=== PATIENT | male | born 1990 | race Caucasian/White ===

== ENCOUNTER → 2023-01-13 09:34 | Outpatient (BNVA) | payer OTHER, SELFPAY | PROVIDERS: PCP Family Medicine; Visit Provider Physician Assistant | DX: Z13.89 Encounter for screening for other disorder (principal) ==

== ENCOUNTER → 2023-01-18 08:01 | Outpatient (BNVA) | payer OTHER, SELFPAY | PROVIDERS: PCP Family Medicine; Visit Provider Surgery | DX: Z13.89 Encounter for screening for other disorder (principal) ==

== ENCOUNTER 2023-01-31 06:45 | Outpatient (REF) | payer OTHER, SELFPAY ==
--- NOTE | 2023-01-31 | ECG_ITS ---
Test Reason : E66.01 Blood Pressure : / mmHG Vent. Rate : 073 BPM Atrial Rate : 073 BPM P-R Int : 118 ms QRS Dur : 104 ms QT Int : 380 ms P-R-T Axes : 007 039 018 degrees QTc Int : 418 ms Normal sinus rhythm Normal ECG No previous ECGs available Referred By: Tariq Brunner Electronically Signed By:JUAN J SCANLON
--- NOTE | ~2023-01-31 | XR_ITS ---
EXAMINATION: XR CHEST CLINICAL INFORMATION: Bariatric service evaluation. E 66.01 COMPARISON: None available. TECHNIQUE: 2 views of the chest were obtained. FINDINGS: The lungs are clear. No hyperinflation. No infiltrate or effusion. The heart is normal in size. The vascularity is normal. The hilar and mediastinal contours and visualized bony structures are unremarkable. XR/XR chest 2V IMPRESSION: Unremarkable examination.
[2023-01-31 07:07] LABS: MANUAL DIFF FLAG NO
[2023-01-31 08:05] LABS: Basophils Percent Auto 0.8 % (0-2); Eosinophils Absolute Auto 0.2 X10*3/uL (0.0-0.4); Eosinophils Percent Auto 4.2 % (0-4); Hematocrit 43.6 % (42.0-52.0); Imm Gran Abs Auto 0.01 X10*3/uL (0.00-0.03); Imm Gran Pct Auto 0.2 % (0.0-0.4); Lymphocytes Absolute Auto 1.8 X10*3/uL (1.2-4.9); Lymphocytes Percent Auto 37.7 % (20-40); Mean Corpuscular HGB Conc 34.4 g/dl (31.0-36.0); Mean Corpuscular Hemoglobin 31.4 pg (27.0-33.0); Mean Corpuscular Volume 91.2 fL (80.0-98.0); Mean Platelet Volume 10.1 fL (9.4-12.4); Monocytes Absolute Auto 0.5 X10*3/uL (0.1-1.2); Monocytes Percent Auto 10.7 % (2-11); Neutrophils Absolute Auto 2.2 x10*3/uL (2.0-8.3); Neutrophils Percent Auto 46.4 % (45-73); Platelet Count 232 X10*3/uL (160-400); Red Blood Count 4.78 X10*6/uL (4.60-5.80); White Blood Count 4.8 X10*3/uL (4.8-10.8)
[2023-01-31 08:39] LABS: Estimated Average Glucose 97 mg/dL
[2023-01-31 09:52] LABS: Alanine Aminotransferase 65 U/L (0-40); Albumin Level 4.7 g/dL (3.5-5.0); Alkaline Phosphatase 60 U/L (39-117); Anion Gap 16 (12-20); Aspartate Amino Transferase 36 U/L (5-37); Bilirubin Total 1.5 mg/dL (0.0-1.0); Blood Urea Nitrogen 16 mg/dL (9-16); C Reactive Protein 1.22 mg/dL (< or = 0.50); Calcium 9.5 mg/dL (8.4-10.2); Carbon Dioxide 26 mmol/L (22-29); Chloride 103 mmol/L (96-108); Cholesterol 169 mg/dL; Estimated Glomerular Filt Rate > 60; Glucose Random 83 mg/dL (60-115); HDL Cholesterol 35 mg/dL; Iron 96 mcg/dL (45-160); LDL Cholesterol Calculated 118 mg/dl; Percent Iron Saturation 37 % (15-50); Potassium 4.1 mmol/L (3.3-5.1); Sodium 141 mmol/L (135-145); Total Iron Binding Capacity 260 mcg/dL (228-428); Total Protein 6.9 g/dL (6.5-8.0); Triglycerides 82 mg/dL; Unsaturated Iron Binding 164 ug/dL
[2023-01-31 10:06] LABS: Ferritin 442 ng/mL (20-250); Folate 10.9 ng/mL (> or = 4.0); Insulin 9 uU/mL (2-29); Vitamin B12 804 pg/mL (200-900); Vitamin D 25-OH Total 10.7 ng/mL (>30)
[2023-02-02 11:19] LABS: Calcium (PTHI) 9.6 mg/dL (8.6-10.3); PTHI 43 pg/mL (16-77)
[2023-02-02 15:01] LABS: H Pylori Breath Test Negative (Negative)
[2023-02-04 01:58] LABS: Zinc 98 mcg/dL (60-130)
[2023-02-06 05:34] LABS: Vitamin B1 9 nmol/L (8-30)
[2023-02-07 16:15] LABS: Vitamin A 43 mcg/dL (38-98)
== END 2023-01-31 06:46 | disposition home or self-care (01) ==
LOC: HO.LAB 06:45
PROVIDERS: PCP Family Medicine; Visit Provider Surgery
DX: E66.01 Morbid (severe) obesity due to excess calories (principal)
CPT/HCPCS: 36415; 71046; 80053; 80061; 82306; 82607; 82728; 82746; 83013; 83036; 83525; 83540; 83970; 84425; 84443; 84590; 84630; 85025; 86140; 93005

== ENCOUNTER → 2023-02-08 07:56 | Outpatient (BNVA) | payer OTHER, SELFPAY | PROVIDERS: PCP Family Medicine; Visit Provider Surgery | DX: Z13.89 Encounter for screening for other disorder (principal) ==

== ENCOUNTER → 2023-02-21 14:30 | Outpatient (BNVA) | payer OTHER, SELFPAY | PROVIDERS: PCP Family Medicine; Visit Provider Counselor Mental Health | DX: Z13.89 Encounter for screening for other disorder (principal) ==

== ENCOUNTER → 2023-03-06 08:14 | Outpatient (BNVA) | payer OTHER, SELFPAY | PROVIDERS: PCP Family Medicine; Visit Provider Surgery | DX: Z13.89 Encounter for screening for other disorder (principal) ==

== ENCOUNTER 2023-03-08 08:12 | Outpatient (REF) | payer OTHER, SELFPAY ==
--- NOTE | ~2023-03-08 | US_ITS ---
EXAMINATION: US COMPLETE ABDOMEN WITH LIVER ELASTOGRAPHY CLINICAL INFORMATION: Obesity COMPARISON: None available. TECHNIQUE: Real-time imaging of the abdominal viscera. Noninvasive ultrasound liver fibrosis assessment is performed using Naresh ElastPQ point quantification shear wave elastography (2D-SWE) with a C5-2 MHz transducer. Multiple elastography samples are obtained. FINDINGS: PANCREAS: Normal. ABDOMINAL AORTA: The proximal, middle, and distal aortic segments are normal in caliber. INFERIOR VENA CAVA: Visualized portions are normal. LIVER: Liver echotexture is increased probably representing fatty infiltration. The liver is upper normal in size. The liver is normal in contour.. No focal lesion or intrahepatic biliary duct dilatation. The right lobe measures 18 cm in length. The left lobe measures 12 cm in length. Portal flow is normal/hepatopedal Shear wave liver elastography median stiffness is 0.08 m/s (reference: normal median stiffness is 1.3 m/s or less). IQR/median stiffness to assess sampling precision is 2 (reference: good quality data set is IQR/median stiffness of 0.15 or less). GALLBLADDER: Normal. The gallbladder is physiologically distended without evidence of stones, sludge, polyps, wall thickening or pericholecystic fluid. COMMON BILE DUCT: Normal in caliber measuring 0.5 cm in diameter. RIGHT KIDNEY: Normal. No hydronephrosis. No renal calculi or focal parenchymal lesions. The kidney measures 12 cm in maximum dimension. LEFT KIDNEY: Not well visualized. SPLEEN: Upper normal in size. The spleen measures 12.6 cm in maximum dimension. FREE FLUID: None. US/US abdomen comp w elastography IMPRESSION: 1. Impression: Echogenic liver probably representing fatty infiltration. Limited visualization of the left kidney. 2. Liver elastography: Limited due to depth of the liver. Adequate liver sampling. Slightly increased liver stiffness suggestive of compensated advanced chronic liver disease but need further test for confirmation. REFERENCE: Society of Radiologists in Ultrasound Liver Stiffness Thresholds (2020): LIVER STIFFNESS THRESHOLDS: *Liver Stiffness equal or less than 1.3 m/s: High probability of being normal. *Liver Stiffness less than 1.7 m/s: In the absence of other known clinical signs, rules out compensated advanced chronic liver disease. *Liver Stiffness 1.7-2.1 m/s: Suggestive of compensated advanced chronic liver disease but need further test for confirmation. *Liver Stiffness over 2.1 m/s: Rules in compensated advanced chronic liver disease. *Liver Stiffness over 2.4 m/s: Suggestive of clinically significant portal hypertension. QUALITY OF DATA SET: *IQR/Median value equal or less than 0.15 implies a quality data set. *IQR/Median value over 0.15 implies a poor quality data set. SIGNIFICANT CHANGE FROM PRIOR EXAM: Significant change if liver stiffness measurement is 10% or greater from prior exam. OTHER CONSIDERATIONS: The stage of liver fibrosis may be overestimated in the setting of acute hepatitis, liver inflammation, elevated liver function tests, hepatic vascular congestion, obstructive cholestasis, non-fasting state, and infiltrative diseases such as amyloidosis and lymphoma. In some patients with NAFLD, the liver stiffness thresholds for compensated advanced chronic liver disease may be lower. In causes other than viral hepatitis and NAFLD, liver stiffness thresholds are not well established.
--- NOTE | ~2023-03-08 | FL_ITS ---
EXAMINATION: XR FLUOROSCOPY UPPER GI WITH AIR CLINICAL INFORMATION: Obesity. COMPARISON: None available. TECHNIQUE: Air-contrast upper GI examination. FINDINGS: There is normal apposition of the focal cords while saying E. There is normal elevation of the soft palate while saying candy. Patient swallowed thin and thick barium and half-inch diameter barium tablet without difficulty. No nasopharyngeal reflux or tracheal aspiration. There is normal esophageal motility without persistent stricture or mucosal abnormality. No hiatal hernia or gastroesophageal reflux was elicited. Stomach demonstrates normal distensibility without abnormal mass or ulceration. There was no delay in gastric emptying. The duodenal bulb and sweep appear unremarkable. FLUOROSCOPY TIME: 1.5 minutes. DOSE AREA PRODUCT: 21.791 Gy-cm2 (frost-centimeter squared). FL/FL upper GI w air IMPRESSION: Normal air-contrast upper GI examination.
== END 2023-03-08 08:13 | disposition home or self-care (01) ==
LOC: HO.US 08:12
PROVIDERS: PCP Family Medicine; Visit Provider Surgery
DX: E66.01 Morbid (severe) obesity due to excess calories (principal)
CPT/HCPCS: 74246; 76705; 76981

== ENCOUNTER → 2023-03-09 08:50 | Outpatient (BNVA) | payer OTHER, SELFPAY | PROVIDERS: PCP Family Medicine; Visit Provider Dietitian, Registered | DX: E66.9 Obesity, unspecified (principal); Z71.3 Dietary counseling and surveillance | CPT/HCPCS: 97802 ==

== ENCOUNTER → 2023-04-06 09:27 | Outpatient (BNVA) | payer OTHER, SELFPAY | PROVIDERS: PCP Family Medicine; Visit Provider Physician Assistant Surgical ==

== ENCOUNTER → 2023-04-07 08:03 | Outpatient (BNVA) | payer OTHER, SELFPAY | PROVIDERS: PCP Family Medicine; Visit Provider Surgery ==

== ENCOUNTER 2023-04-14 09:17 | Outpatient (REF) | payer OTHER, SELFPAY ==
[2023-04-14 09:43] LABS: MANUAL DIFF FLAG NO
[2023-04-14 10:29] LABS: Eosinophils Absolute Auto 0.1 X10*3/uL (0.0-0.4); Eosinophils Percent Auto 2.1 % (0-4); Hematocrit 45.2 % (42.0-52.0); Hemoglobin 15.1 g/dl (14.0-18.0); Lymphocytes Absolute Auto 1.1 X10*3/uL (1.2-4.9); Lymphocytes Percent Auto 28.9 % (20-40); Mean Corpuscular HGB Conc 33.4 g/dl (31.0-36.0); Mean Corpuscular Hemoglobin 30.9 pg (27.0-33.0); Mean Corpuscular Volume 92.6 fL (80.0-98.0); Mean Platelet Volume 10.5 fL (9.4-12.4); Monocytes Absolute Auto 0.4 X10*3/uL (0.1-1.2); Monocytes Percent Auto 9.8 % (2-11); Neutrophils Absolute Auto 2.3 x10*3/uL (2.0-8.3); Neutrophils Percent Auto 58.2 % (45-73); Platelet Count 207 X10*3/uL (160-400); Red Blood Count 4.88 X10*6/uL (4.60-5.80); Red Cell Distribution Width 12.4 % (11.0-16.0); White Blood Count 3.9 X10*3/uL (4.8-10.8)
[2023-04-14 10:50] LABS: Estimated Average Glucose 91 mg/dL; Hemoglobin A1c % 4.8 %
[2023-04-14 10:52] LABS: Prothrombin Time 11.6 SEC (10.0-13.1)
[2023-04-14 10:55] LABS: Partial Thromboplastin Time 40.1 SEC (26.0-36.4)
[2023-04-14 10:59] LABS: Alanine Aminotransferase 54 U/L (0-40); Albumin Level 4.5 g/dL (3.5-5.0); Alkaline Phosphatase 59 U/L (39-117); Anion Gap 13 (12-20); Aspartate Amino Transferase 29 U/L (5-37); Bilirubin Total 1.6 mg/dL (0.0-1.0); Blood Urea Nitrogen 14 mg/dL (9-16); C Reactive Protein 0.62 mg/dL (< or = 0.50); Carbon Dioxide 29 mmol/L (22-29); Chloride 104 mmol/L (96-108); Cholesterol 183 mg/dL; Estimated Glomerular Filt Rate > 60; Glucose Random 90 mg/dL (60-115); HDL Cholesterol 43 mg/dL; LDL Cholesterol Calculated 130 mg/dl; Potassium 4.4 mmol/L (3.3-5.1); Sodium 142 mmol/L (135-145); Total Protein 7.1 g/dL (6.5-8.0); Triglycerides 54 mg/dL
[2023-04-14 11:20] LABS: Insulin 7 uU/mL (2-29); TSH reflex Free T4 1.51 uIU/mL (0.32-4.0)
== END 2023-04-14 09:18 | disposition home or self-care (01) ==
LOC: HO.LAB 09:17
PROVIDERS: PCP Family Medicine; Visit Provider Surgery
DX: E66.9 Obesity, unspecified (principal); Z68.35 Body mass index [BMI] 35.0-35.9, adult
CPT/HCPCS: 36415; 80053; 80061; 83036; 83525; 84443; 85025; 85610; 85730; 86140

== ENCOUNTER 2023-04-20 06:03 | Inpatient (IN) | payer OTHER, SELFPAY ==
[2023-04-14 14:53] VITALS: BMI 35.7
--- NOTE | 2023-04-15 12:55 | P.HPSUR_ITS ---
Pre-Procedural Eval Section A Date of Service: 04/15/23 The patient is an INPATIENT: No The History & Physical has been completed within 30 days and I have reviewed it.: Yes Section B Chief Complaint: Morbid (severe) obesity due to excess calories Relevant Family History (Specify if Yes): No Relevant Social History: None Present Medications: None Medical History: No relevant PMH History of Previous Operations: No relevant previous surgery Allergies: Allergies Allergy/AdvReac Type Severity Reaction Status Date / Time No Known Allergies Allergy Verified 04/07/23 09:41 Review of Systems Sugical H&P ROS: Negative: Constitution, Cardiovascular, Respiratory, Neurological, Psychiatric, Hem-Onc, Allergic/Immunologic, Gastrointestinal, Genitourinary, Musculoskeletal, Integumentary, Endocrine and Eyes/Ears/Nos e/Throat Exam Surgical H&P Exam: Normal: HEENT, Normal: Heart, Normal: Lungs, Normal: Extremities, Normal: Abdomen, Normal: Skin and Normal: Neurological Plan Diagnosis/Plan: Unchanged I have reviewed the history and physical and performed a pertinent physical examination on my patient. No changes have occurred unless specified. Time Spent With Patient Time: Total time managing care of this patient today ____ minutes.
--- NOTE | 2023-04-19 08:25 | HO.ANESPROP2 ---
Documented by User: Maribel Izquierdo NP 04/19/23 08:27 HPI - Anesthesia Eval Consult details Narrative: 32yo M for Gastrectomy Sleeve,EGD,poss diaphragmatic hernia,poss ventral hernia,poss open PMFSH Active Problems Active Problems: All Active Problems (Updated 04/07/23 @ 09:36 by Tariq Brunner MD) Vitamin D deficiency (Acute) Obesity (Acute) BMI 39.0-39.9,adult (Acute) Adjustment disorder, unspecified (Acute) BMI 38.0-38.9,adult (Acute) BMI 35.0-35.9,adult (Acute) Back pain (Acute) Morbid obesity (Acute) Past Medical History Medical History (Updated 04/20/23 @ 10:05 by Tariq Brunner MD) Back pain Morbid obesity Family History Family History (Updated 01/13/23 @ 10:16 by JONO Chauhan) Mother Hypertension High cholesterol Father Hypertension Diabetes Sister No problems noted. Brother Diabetes Brother Hydrocephalus Son No problems noted. Daughter No problems noted. Surgical History Surgical History (Updated 04/20/23 @ 09:53 by Elizabeth Lomeli PA-C) Hx of hand surgery Hx of wisdom tooth extraction Social History Social History (Updated 01/13/23 @ 10:14 by JONO Chauhan) Household Members: None Housing: House Are you a primary child adolescent care to a significant other at home: No Do you presently have visiting nurse or other home services: No Alcohol intake: current Alcohol intake frequency: 0-2 drinks per day Patient Tobacco Use Status: Never used Tobacco Use of substances other than those prescribed or required for medical reasons: No Currently Displaying Signs/Symptoms of Drug Intoxication Withdrawal: No Have you been hit, kicked, punched, or otherwise hurt by someone within the past year? If so, by whom?: No Do you feel safe in your current relationship?: Yes Is there a partner from a previous relationship who is making you feel unsafe now?: No Are you made to feel afraid or neglected: No Are you DNR?: No Advance Directives: No ( Sandra Ogden is primary contact) Advance Directives Information Provided: Yes (brochure mailed) Advance Directives on File: No Do you have thoughts of harming others: None Do you have a plan to hurt others: No Plan Recently lost weight without trying: No Eating poorly because of decreased appetite: No Nutrition Risks: No Nutritional Risk Poor oral hygiene: No Meds Allergies Allergy/AdvReac Type Severity Reaction Status Date / Time No Known Allergies Allergy Verified 04/20/23 06:15 Home Medications Medication Instructions Recorded Confirmed Last Taken Type acetaminophen 500 mg tablet 1,000 mg PO Q6H PRN Pain 04/20/23 04/20/23 04/16/23 History ondansetron 4 mg disintegrating 4 mg PO Q12H PRN Nausea And 04/20/23 04/20/23 Unknown History tablet Vomiting pantoprazole 40 mg tablet,delayed 40 mg PO DAILY@0630 04/20/23 04/20/23 04/19/23 History release Exam Exam Date and Time: April 19, 2023 0825 Height,Weight and Vital Signs: Height 6 ft 2 in Weight 126.099 kg Pertinent Lab Results Pertinent Lab Results: Laboratory Tests 04/14/23 09:28 Blood Type O Positive Antibody Screen NEGATIVE Laboratory Tests 04/14/23 04/14/23 09:42 09:42 WBC 3.9 L Hgb 15.1 Hct 45.2 Plt Count 207 Sodium 142 Potassium 4.4 Chloride 104 Carbon Dioxide 29 BUN 14 Creatinine 0.76 Narrative Narrative: EKG 01/2023 Vent. Rate : 073 BPM ? ? Atrial Rate : 073 BPM ?? P-R Int : 118 ms? QRS Dur : 104 ms ? ? QT Int : 380 ms ? ? ? P-R-T Axes : 007 039 018 degrees ?? QTc Int : 418 ms ? Normal sinus rhythm Normal ECG No previous ECGs available Assessment and Plan Assessment Anesthesia Assessment: Chart Reviewed Documented by User: Willie Loera MD 04/20/23 14:30 [facility] Past Medical History Medical History (Updated 04/20/23 @ 10:05 by Tariq Brunner MD) Back pain Morbid obesity Functional capacity: independent ambulation Family History Family History (Updated 01/13/23 @ 10:16 by JONO Chauhan) Mother Hypertension High cholesterol Father Hypertension Diabetes Sister No problems noted. Brother Diabetes Brother Hydrocephalus Son No problems noted. Daughter No problems noted. Family history of problems with anesthesia: No Surgical History Surgical History (Updated 04/20/23 @ 09:53 by Elizabeth Lomeli PA-C) Hx of hand surgery Hx of wisdom tooth extraction History of Problems with Anesthesia: No Social History Social History (Updated 01/13/23 @ 10:14 by JONO Chauhan) Household Members: None Housing: House Are you a primary child adolescent care to a significant other at home: No Do you presently have visiting nurse or other home services: No Alcohol intake: current Alcohol intake frequency: 0-2 drinks per day Patient Tobacco Use Status: Never used Tobacco Use of substances other than those prescribed or required for medical reasons: No Currently Displaying Signs/Symptoms of Drug Intoxication Withdrawal: No Have you been hit, kicked, punched, or otherwise hurt by someone within the past year? If so, by whom?: No Do you feel safe in your current relationship?: Yes Is there a partner from a previous relationship who is making you feel unsafe now?: No Are you made to feel afraid or neglected: No Are you DNR?: No Advance Directives: No ( Sandra Ogden is primary contact) Advance Directives Information Provided: Yes (brochure mailed) Advance Directives on File: No Do you have thoughts of harming others: None Do you have a plan to hurt others: No Plan Recently lost weight without trying: No Eating poorly because of decreased appetite: No Nutrition Risks: No Nutritional Risk Poor oral hygiene: No Meds Allergies Allergy/AdvReac Type Severity Reaction Status Date / Time No Known Allergies Allergy Verified 04/20/23 06:15 Home Medications Medication Instructions Recorded Confirmed Last Taken Type acetaminophen 500 mg tablet 1,000 mg PO Q6H PRN Pain 04/20/23 04/20/23 04/16/23 History ondansetron 4 mg disintegrating 4 mg PO Q12H PRN Nausea And 04/20/23 04/20/23 Unknown History tablet Vomiting pantoprazole 40 mg tablet,delayed 40 mg PO DAILY@0630 04/20/23 04/20/23 04/19/23 History release Exam Airway Mallampati Class: III Neck ROM: Full Loose/Missing/Broken Teeth: Yes (chipped teeth ) Assessment and Plan Assessment Anesthesia Assessment: Anesthesia Plan Discussed Final Anesthetic Review Family History of Problems with Anesthesia: No History of Problems with Anesthesia: No NPO: Yes ASA Class: III Final Preanesthetic Review: Meds/Allgs Chart Reviewed, Consent Obtained/Reviewed and Anes Risks/Benef Reviewed Patient Risk: Intermediate Procedure Risk: Intermediate Anesthetic Plan Anesthetic Plan: GA and Agree w/ Assess. and Plan Disposition: Standard PACU and Inp. Admit - Standard Bed
[2023-04-19 09:34] LABS: COVID-19 Test Negative (Negative); IDNOW Serial# 55D5AD1C
[2023-04-20] VITALS (10 sets, daily range): BP systolic 119–142; BP diastolic 65–84; PULSE 61–90; RESP 13–20; TEMP 36.1–37; O2SAT 95–98
[2023-04-20] MEDS: Lactated Ringers 1,000 ML 999 ML IV (06:35)
[2023-04-20] MEDS: Aprepitant 32 MG/4.4 ML VIAL IVPUSH (06:35)
--- NOTE | 2023-04-20 09:55 | PM.DS ---
DS: Providers Provider Date of Service: 04/21/23 Date of admission: 04/20/23 06:03 Primary care physician: Nelli Mcknight MD DS: Summary Hospital Course Hospital Course: ADMITTING DIAGNOSIS: morbid obesity, back pain DISCHARGE DIAGNOSIS: same, s/p laparoscopic sleeve gastrectomy PAST SURGICAL HISTORY: none PROCEDURE: upper endoscopy, laparoscopic sleeve gastrectomy DISCHARGE SUMMARY: History of Present Illness: The patient is a 32 year-old man with a BMI of 41.2 kg/m2 and associated co-morbidities as described above. The patient had extensive work-up, lost 42.2 lbs preoperatively and was electively scheduled for laparoscopic, possible open sleeve gastrectomy and gastropexy. Risks and complications of the surgery were discussed with the patient in advance, particularly the possibility of , pulmonary embolism, anastomotic leak, bleeding, bowel injury, GERD, cardiac, renal or pulmonary complications. The patient understood all the risks and was in agreement with the surgical plan. Hospital Course: The patient underwent an uneventful laparoscopic sleeve gastrectomy with gastropexy on the day of admission. Postoperatively, the patient was transferred to the surgical floor. The patient received IV Acetaminophen and IV dilaudid for pain control. Patient was started on bariatric phase 1 diet POD #0. On postoperative day one, the patient was feeling well without nausea, vomiting, fevers, or tachycardia. The patient had some mild incisional pain and the abdomen was soft. On the morning of postoperative day one, the patient was continued on 1 ounce of water or ice every half hour. During the day, the patient did fairly well, having some incisional pain, but able to ambulate adequately and to tolerate liquids well. Since the patient is doing well, we decided that the patient was ready to be discharged. The patient was given instructions to follow-up with me next week and to call my office for any fever over 101, persistent abdominal pain, nausea, vomiting, GERD, symptoms of DVT such as calf tenderness, or leg swelling, or pulmonary embolism such as chest pain or shortness of breath. The patient was also instructed to drink 40-60 ounces of liquids per day using the 1-ounce cups. The patient had been given prescriptions for Tylenol for pain, Zofran prn for nausea, and pantoprazole and carafate previously. The patient was encouraged to ambulate and use the incentive spirometer. The patient was allowed to shower, but no baths, and encouraged to stay active at home. All of these instructions were given to the patient personally. All questions were answered and the patient understood all instructions, the instructions were also given to the patient in print. Time Spent with Patient Time attestation: Total time managing care of this patient today ____ minutes. Discharge coordination time: Less than 30 minutes Quality: Safe Use of Opioids Does Pt have an Active Cancer Diagnosis on the Problem List?: No Quality: Stroke Does the patient have a stroke diagnosis?: No Physical Exam Vital Signs: Vital Signs: Last Vital Signs Temp 97.4 F 04/20/23 06:18 Pulse 76 04/20/23 06:18 Resp 15 04/20/23 06:18 BP 131/77 04/20/23 06:18 Pulse Ox 97 04/20/23 06:18 O2 Del Method Room Air 04/20/23 06:18 BMI result Body Mass Index 35.7 DS: Data Data Completed and Pending Pending studies at discharge: Pending at discharge 04/20/23 09:24 Surgical [PTH] Routine Discharge Plan Discharge Anticipated Discharge Date/Time: 04/21/23 10:52 Patient Disposition: Home, Self-Care Discharge Diagnosis: s/p sleeve gastrectomy Referrals: Nelli Mcknight MD [Primary Care Provider] - 1 Week Discharge Medications: Continued acetaminophen 500 mg Tablet 1,000 mg PO Q6H PRN (Reason: Pain) pantoprazole 40 mg tablet,delayed release (DR/EC) 40 mg PO DAILY@0630 ondansetron 4 mg tablet,disintegrating 4 mg PO Q12H PRN (Reason: Nausea And Vomiting) Rx Instructions: Only take one every 12 hours as needed if you have nausea sucralfate 100 mg/mL suspension 10 ml PO BID Qty: 400 2RF Discharge Orders: Discharge Order (Routine); Ordered 04/21/23 Ordered By: Tariq Brunner Activity on Discharge: No heavy lifting Stand Alone Forms: Patient Portal Discharge page Care Plan Goals: weight loss Health Concerns: morbid obesity Plan of Treatment: No tub baths, sex or returning to work until discussed at first post op appointment. No exercise, alcohol, tobacco or illegal drug use. Continue to use incentive spirometer hourly while awake. Walk in home for 5- 10 minutes every 2 hours during the first week. Continue phase 1 diet today and start phase 2 diet tomorrow morning. Follow all instructions in the bariatric handbook and call with any questions. 1. Please call your doctor or come back to the emergency room should any new symptoms arise. 2. You will receive a courtesy call from [facility] 24-48 hours after discharge. 3. Activity: abstain from alcohol, practice limited stair climbing, no bending, no driving, no exercise, no illicit substances, no lifting, no sex, no tub bath, no work. 4. Diet: continue as discussed with bariatric team.. 5. Dressing Change/Wound Care: Do not change or remove surgical dressings unless they are wet or soiled. 6. Call your doctor if: - Your temperature exceeds 101.5 F - You experience excessive pain or swelling - You have an unexpected reaction to medication - You have excessive bleeding - You experience continued vomiting/nausea - Your incision begins to separate - Your incision shows signs of infection such as increased redness, swelling, excessive pain, heat, or drainage (light blood or clear fluid is normal) 7. General instructions: No lifting greater than 5 lbs for the next 4 weeks[address] within 24 hours of taking narcotic pain medications. If you do not move your bowels in the next 2 days, please take milk of magnesia over the counter. Please follow the post op diet and do not advance your diet until you are seen in the office in about 2 weeks. Please walk around your home every hour or two to prevent blood clots from forming in your legs. You do not need to wake from sleeping to walk. Please sleep in a bed or couch to prevent kinking at the hips and knees. Please take your incentive spirometer (your lung restorative coordinator) home with you and use it for the next few days to prevent pneumonias. You may shower, no hot tubs, baths or swimming pools. Please call the office with any questions or concerns such as increasing abdominal pain, fever, chills, shortness of breath, chest pain, leg pain or swelling, or redness or drainage from your incisions. Do not hesitate to contact the office with any questions at . The patient's medical history has been reviewed and they are considered low risk for post op DVT and therefore DVT prophylaxis is not considered necessary. Travel after surgery was reviewed. The patient has not disclosed any travel plans during the first 30 days after surgery and they have been advised that within the first 30 days after surgery any bus, plane, train or car travel over 2 hours in duration is contraindicated due to the possibility of developing blood clots from immobility. Any travel, needs to include periods of ambulation of 10 minutes in duration every 2 hours. The patient was instructed to discuss any plans for travel during this period with their bariatric surgeon. Assessment: stable, post op sleeve gastrectomy Discharge Date/Time: 04/21/23 09:48
--- NOTE | 2023-04-20 09:59 | P.BOP_ITS ---
Brief Operative Note Date of Service: 04/20/23 Pre-op diagnosis: Severe obesity with comorbidities (see below) Post-op diagnosis: same (& congenital abdominal adhesions) Procedure: INITIAL PATIENT BMI ON PRESENTATION AT OUR OFFICE: 41.3 kg/m2 LAST BMI BEFORE SURGERY: 35.7 kg/m2 COMORBIDITIES: back pain, liver steatosis, liver fibrosis, headaches ?The patient presented to the Weight Management Program with significant obesity that was negatively impacting the patient's comorbidities as listed above.? The program is a phased program with a special focus on preoperative medical weight management to promote substantial weight loss and prepare the patients for the second phase of the program: bariatric surgery. The patient participated in an intensive weekly lifestyle ?intervention and exercise program during which the patient ?has lost between the initial office visit and the last preoperative visit 43.4lbs, or 13.5% of initial actual body weight. It was deemed appropriate for the patient to now have bariatric surgery. In light of the current Covid-19 pandemic and the well documented strong association of obesity and increased risk of worse outcomes if infected with Covid-19 (REFERENCES: https://pubmed.ncbi.nlm.nih.gov/59421791/ ,? https://pubmed.ncbi.nlm.nih.gov/25261976/ ), any delay in undergoing bariatric surgery may lead to the patient's worsening health condition and increased?risk of more severe Covid-19 disease if infected. In addition a recent?study from [facility] published in [facility] on 11/01/2021 ([email or web address] [id number]) found that, among patients with obesity, substantial weight loss achieved with surgery was associated with improved outcomes of COVID-19 infection. The findings suggest that obesity can be a modifiable risk factor for the severity of COVID-19 infection. In addition, the patient met the BMI-criteria for bariatric surgery based on the BMI on initial presentation. The patient should not be penalized for achieving such weight loss because ?it is not sustainable long-term without surgical intervention and it was achieved in preparation for bariatric surgery ?under my direction and based on my published research ([email or web address]).pdf and? [email or web address].soard.org/article/[email or web address](00)25530-X/pdf ) ?that a 10% preoperative weight loss improves long-term weight loss after surgery and reduces perioperative complications.? Insurance carriers such as [facility] have endorsed my recommendations ?and have included in their policies criteria to include a 10% preoperative weight loss requirement. PROCEDURE: Esophago-gastroscopy, laparoscopic lysis of adhesions, laparoscopic sleeve gastrectomy and laparoscopic gastropexy INDICATIONS: This is a 49 year-old female who was electively scheduled for laparoscopic, possibly open sleeve gastrectomy. The risks and complications of the procedure were discussed with the patient in advance, particularly the possibility of ; pulmonary embolism; staple line leak; bleeding; GERD; cardiac, pulmonary, or renal complications; as well as long-term problems such as insufficient weight loss, vitamin deficiency, strictures, or ulcers. The patient understood all the risks, and was in agreement to proceed with surgery. DESCRIPTION OF PROCEDURE: After informed consent was obtained from the patient, the patient was given preoperative antibiotics, and was transferred to the operating room. After successful induction of general anesthesia, pneumatic compression devices were placed on both lower extremities. An upper endoscopy was performed next. The oropharynx and esophagus appeared to be within normal limits. There was no diaphragmatic hernia present consistent with the findings of the preoperative upper GI. The stomach was entered. Then after all fluid and air were suctioned and the stomach was fully decompressed, the scope was withdrawn and secured in the mid esophagus. The patient was then prepped and draped in the usual sterile manner, and abdominal access was established at the right upper quadrant with the Rafiq technique. A 12 mm blunt port was inserted, and the abdomen was insufflated with CO2 to a pressure of 15 mmHg. Under direct visualization, additional ports were placed, specifically two 5 mm Versi-step ports to the left upper quadrant, and a 5 mm Versi-Step port to the right upper quadrant. 1% lidocaine plain was used to infiltrate all port sites as well as all fascia defects. Following that, the patient was placed in a steep reverse Trendelenburg position. An additional 5 mm port was placed to the right flank for the Mediflex retractor that was used to retract the left lobe of the liver. The gastro-esophageal fat pad was opened with the ultrasonic device (Thunderbeat, Olympus) and the anterior esophagus and hiatus were exposed. The angle of His was opened with the ultrasonic device the fundus of the stomach from any diaphragmatic and splenic attachments. I then opened the gastrocolic ligament between the transverse colon and the greater curvature of the stomach with the ultrasonic device to enter the lesser sac and facilitate the ligation of the short gastric vessels. I started at a mid-point along the greater curvature and using the Thunderbeat, all short gastric vessels were divided all the way to the angle of His until the left trey was completely dissected at its entirety. I then divided the gastro-colic ligament distally to a distance of about 3-4 cm proximal to the pylorus. There were extensive congenital adhesions between the pancreas and posterior gastric wall. Those were lysed completely with the ultrasonic device. Adhesiolysis took approximately 45 min to complete.? The stomach was then divided transversely with one Endo YUNI-45 purple and 4 YNUI- 60 articulating purple loads using the SIGNIA stapler and loads. Every effort was made that the gastric sleeve had a tubular shape and an even caliber throughout. Once the sleeve resection was completed, the staple line of the gastric sleeve was reinforced with Hemoclips. The resected stomach was retrieved without difficulty from the Rafiq port. A gastropexy was then performed in order to prevent postoperative GERD and partial gastric volvulus. Several interrupted 2.0 Surgidac sutures were placed between the sleeve's staple line and the previously divided greater omentum and gastro-colic ligament using the Endo-Stitch device. ?An upper endoscopy was performed. There was no narrowing at the GE junction. The scope was easily advanced all the way to the pylorus which was clearly visualized. There was no narrowing anywhere and the sleeve's caliber was even throughout. The sleeve's staple line was inspected and there was no evidence of ischemia, bleeding or dehiscence. At that point the gastroscope was withdrawn from the patient?s mouth while we were decompressing the bowel and the stomach from any remaining air. I looked into the lesser sac to see how the sleeve was situating and it was situating well. There was no bleeding from the staple line, spleen, or short gastric vessels. The Mediflex retractor was removed, and the undersurface of the liver was inspected and there was no bleeding. The patient was placed in supine position. I closed the fascial defect of the 12 mm port site with a figure of eight #1 Polysorb suture. Then 30cc Ropivacaine plain with 10 mg of Dexamethasone were used to infiltrate the fascial closure as well as all skin incisions. A total of 7ml Zynrelef was applied in the Rafiq wound. At this point, the abdomen was deflated, all ports were removed under direct vision, and no bleeding was noted from any of the port sites. The skin incisions were irrigated with saline and w ere closed with 4-0 absorbable monofilament sutures. Steri-Strips and OpSites were used to cover all incisions. The patient was extubated and was transferred in stable condition to the recovery room for further care. I was present and performed all calhoun parts of the procedure. Armani was the department assistant. There were no residents to assist with this case. Rodney Brunner MD, PhD, FACS Surgeon: Tariq Brunner MD Anesthesia: GETA, local and other (TAP block and 7ml Zynrelef) Was an Stringer Machine Tender used for this Procedure?: Yes Stringer Machine Tender: Elizabeth Lomeli Estimated blood loss (mL): 10 IV fluids (mL): 2,000 Urine output (mL): 0 (No Ha to record output) Pathology: other (1) Stomach, 2) Gastroesophageal fat pad) Condition: stable Disposition: PACU
--- NOTE | 2023-04-20 10:04 | PM.PNGS ---
Subjective Subjective Date of Service: 04/21/23 Interval history: Feels well. Mild incisional pain. He is tolerating phase 1 bariatric diet Physical Exam Vital Signs: Vital Signs: Last Vital Signs Temp 97 F 04/20/23 09:54 Pulse 61 04/20/23 09:59 Resp 16 04/20/23 09:59 BP 125/84 04/20/23 09:59 Pulse Ox 95 04/20/23 09:59 O2 Del Method Nasal Cannula wit h Capnography 04/20/23 09:59 O2 Flow Rate 6 04/20/23 09:54 BMI result Body Mass Index 35.7 GI: Inspection: Yes normal to inspection, Yes incision (clean, dry and intact) and Yes obesity Palpation (GI): Soft to palpation Extrem: Right lower extremity: normal to inspection (no calf tenderness) Left lower extremity: normal to inspection (no calf tenderness) Objective Data Active Medications Fentanyl (Fentanyl Citrate/Pf 100 Mcg/2 Ml Vial) 25 mcg IVPUSH Q5M PRN; Protocol PRN Reason: Pain, Moderate(Pain Scale 4-6) Hydromorphone HCl (Hydromorphone Hcl 0.5 Mg/0.5 Ml Syringe) 0.25 mg IVPUSH Q5M PRN; Protocol PRN Reason: Pain, Severe (Pain Scale 7-10) Lactated Ringer's (Lr) 1,000 mls @ 100 mls/hr IVCONT .Q10H SHAYLEE Promethazine HCl 6.25 mg/ (Sodium Chloride) 50.25 mls @ 201 mls/hr IV ONCE PRN PRN Reason: Nausea and Vomiting Labs 04/21/23 05:50 04/21/23 05:50 Procedures Date of Service Date of Service: 04/21/23 Progress Note: A&P Assessment and plan (1) Obesity: Status: Acute Assessment and Plan: s/p laparoscopic sleeve gastrectomy, lysis of adhesions and gastropexy Doing well Will check am labs and if OK the patient will be discharged home (2) BMI 35.0-35.9,adult: Status: Acute (3) Back pain: Status: Acute (4) S/P laparoscopic sleeve gastrectomy: Status: Acute (5) Intra-abdominal adhesions: Status: Acute (6) Congenital intra-abdominal adhesions: Status: Acute (7) Steatosis, liver: Status: Acute (8) Liver fibrosis: Status: Acute Time Spent With Patient Time: Total time managing care of this patient today ____ minutes. Quality Stroke Does the patient have a stroke diagnosis?: No VTE Prior VTE?: No VTE Risk Level:: Surgical - moderate VTE Device Contraindication: N/A - Device Ordered VTE Drug Contraindication: Treatment Not Indicated
[2023-04-20 10:49] LABS: Hematocrit 42.3 % (42.0-52.0); Hemoglobin 14.5 g/dl (14.0-18.0)
[2023-04-20 11:05] LABS: Anion Gap 17 (12-20); Blood Urea Nitrogen 12 mg/dL (9-16); Calcium 9.5 mg/dL (8.4-10.2); Carbon Dioxide 25 mmol/L (22-29); Chloride 102 mmol/L (96-108); Creatinine Clr Calc Pharmacy 185.9; Estimated Glomerular Filt Rate > 60; Glucose Random 131 mg/dL (60-115); Potassium 4.1 mmol/L (3.3-5.1); Sodium 140 mmol/L (135-145)
[2023-04-20] MEDS: Famotidine/PF 20 MG/2 ML VIAL IVPUSH ×2 (11:09→20:17)
[2023-04-20] MEDS: Lactated Ringers 1,000 ML 100 ML IVCONT ×2 (11:10→20:18)
--- NOTE | 2023-04-20 11:19 | PHA.MEDREC ---
Pharmacy Consult ? Medication Reconciliation Pharmacy has completed the medication reconciliation.
[2023-04-20] MEDS: ceFAZolin Sodium/Dextrose,Iso 2 GM/50 ML PIGGYBACK IV (13:03)
[2023-04-20] MEDS: 0.9 % Sodium Chloride Flush 3 ML SYRINGE IVFLUSH (20:18)
[2023-04-20] MEDS: Acetaminophen 1,000 MG/100 ML PIGGYBACK 400 MG IV (21:48)
[2023-04-21] VITALS: BP 135/72; PULSE 82; RESP 18; TEMP 36.8; O2SAT 96
[2023-04-21 02:31] VITALS: BP 117/57; PULSE 92; RESP 18; TEMP 36.8; O2SAT 95
[2023-04-21] MEDS: Lactated Ringers 1,000 ML 100 ML IVCONT (05:03)
[2023-04-21 06:11] LABS: MANUAL DIFF FLAG NO
[2023-04-21 06:29] LABS: Basophils Percent Auto 0.1 % (0-2); Hematocrit 39.3 % (42.0-52.0); Hemoglobin 13.6 g/dl (14.0-18.0); Imm Gran Abs Auto 0.03 X10*3/uL (0.00-0.03); Imm Gran Pct Auto 0.4 % (0.0-0.4); Lymphocytes Percent Auto 13.6 % (20-40); Mean Corpuscular HGB Conc 34.6 g/dl (31.0-36.0); Mean Corpuscular Hemoglobin 31.5 pg (27.0-33.0); Mean Platelet Volume 10.8 fL (9.4-12.4); Monocytes Absolute Auto 0.6 X10*3/uL (0.1-1.2); Monocytes Percent Auto 7.6 % (2-11); Neutrophils Absolute Auto 5.6 x10*3/uL (2.0-8.3); Neutrophils Percent Auto 78.3 % (45-73); Platelet Count 191 X10*3/uL (160-400); Red Blood Count 4.32 X10*6/uL (4.60-5.80); White Blood Count 7.2 X10*3/uL (4.8-10.8)
[2023-04-21 06:39] LABS: Anion Gap 15 (12-20); Blood Urea Nitrogen 9 mg/dL (9-16); Calcium 9.5 mg/dL (8.4-10.2); Carbon Dioxide 23 mmol/L (22-29); Chloride 104 mmol/L (96-108); Creatinine Clr Calc Pharmacy 206.8; Estimated Glomerular Filt Rate > 60; Glucose Random 98 mg/dL (60-115); Potassium 3.8 mmol/L (3.3-5.1); Sodium 138 mmol/L (135-145)
[2023-04-21 06:55] VITALS: BP 125/64; PULSE 80; RESP 20; TEMP 36.8; O2SAT 98
[2023-04-21] MEDS: Famotidine/PF 20 MG/2 ML VIAL IVPUSH (07:24)
[2023-04-21] MEDS: Acetaminophen 1,000 MG/100 ML PIGGYBACK 400 MG IV (08:22)
--- NOTE | 2023-04-21 08:55 | MHC.CM.PN ---
pt dcd home no skilled servceis ordered by
--- NOTE | 2023-04-24 09:17 | HO.POSTANES ---
Post Anesthesia Evaluation Post Anesthesia Evaluation Date of Service: 04/21/23 Vital Signs: 0655: 125/64, 80, 20, 98.2F, 98% Anesthesia: General Endotracheal-GETA Mental Status: Awake Pain Control: Satisfactory Nausea/Vomiting: None Hydration: Adequate Anesthesia-Related Issues: No Anes. Related Issues
== END 2023-04-21 09:48 | disposition home or self-care (01) | DRG 403 ==
LOC: HO.SSSA 06:06 → HO.S3 10:23
PROVIDERS: Physician Assistant; Physician Assistant Surgical; Admitting Provider Surgery; PCP Family Medicine; Visit Provider Surgery
PROC: 0DB64Z3 Excision of Stomach, Percutaneous Endoscopic Approach, Vertical (ICD-10-PCS; CPT 43845; principal; 2023-04-20 07:30)
DX: E66.01 Morbid (severe) obesity due to excess calories (principal); K74.00 Hepatic fibrosis, unspecified; Q43.3 Congenital malformations of intestinal fixation; M54.9 Dorsalgia, unspecified; F43.20 Adjustment disorder, unspecified; K76.0 Fatty (change of) liver, not elsewhere classified; Z20.822 Contact with and (suspected) exposure to COVID-19; Z79.899 Other long term (current) drug therapy
CPT/HCPCS: 43775; 43659; 49329; 36415; 80048; 85014; 85018; 85025; 86850; 86900; 86901; 87635; 88304; 88305; 88307; 88342; A4649; C9088; C9145; J0131; J0690; J1100; J1170; J2250; J2795; J3010

== ENCOUNTER → 2023-04-25 10:32 | Outpatient (BNVA) | payer OTHER, SELFPAY | PROVIDERS: PCP Family Medicine; Visit Provider Physician Assistant Surgical ==

== ENCOUNTER 2023-05-17 09:30 | Outpatient (AMB) | payer OTHER, SELFPAY ==
--- NOTE | 2023-05-17 09:34 | A.OFFVIS_ITS ---
Intake VS Expanded 05/17/23 09:50 Height 6 ft 2 in Weight 252 lb 8 oz BMI 32.4 Intake Visit Reasons: VIDEO PO LSG 04/20/23 Allergies No Known Allergies Allergy (Verified 04/25/23 11:19) Medication List - Last Reconciled 05/17/23 by Elizabeth Lomeli PA-C pantoprazole 40 mg PO DAILY@0630 sucralfate 10 mL PO BID HPI HPI Comments History of Present Illness Details Pt is now 4 weeks s/p LSG with Dr Valenzuela. 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 No n/v, abd pain or reflux. Plans to go back to work on May 22 - needs disability paperwork filled out. Meal plan per Dr Valenzuela: 8 am - 4:1 2 scoops with almond milk - 2 hours 11 am - same shake 2 pm -PP 1 scoop with almond milk 5 pm bar over 3 hours Exercise - exercise bike for 50 minutes - cardona 200- 300 per session, 5 d/week. [facility] Medical History (Updated 04/22/23 @ 00:07 by Nav Fish) Adjustment disorder, unspecified Back pain BMI 38.0-38.9,adult BMI 39.0-39.9,adult Morbid obesity Vitamin D deficiency Surgical History (Updated 04/25/23 @ 11:19 by Wendy Phelan CMA) Hx of hand surgery Hx of wisdom tooth extraction S/P laparoscopic sleeve gastrectomy Family History Mother Hypertension High cholesterol Father Hypertension Diabetes Sister No problems noted. Brother Diabetes Brother Hydrocephalus Son No problems noted. Daughter No problems noted. Social History Household Members: None Housing: House Are you a primary home health care case manager to a significant other at home: No Do you presently have visiting nurse or other home services: No Alcohol intake: current Alcohol intake frequency: 0-2 drinks per day Patient Tobacco Use Status: Never used Tobacco Physical Exam GI Inspection: Yes scar (all completely healed) Assessment & Plan Assessment & Plan (1) S/P laparoscopic sleeve gastrectomy: Code(s): Z98.84 - Bariatric surgery status Plan: Pt is now 4.5 weeks s/p LSG - no complications. Pt was in zynrelef study and 28 day paperwork completed todday. No meal plan changes Exercie - alternate between spin bike class or varying bike programs for [address] with his bike tatum or TBp (once he is 6 weeks post op). Next appt 4 weeks. Medications: Discontinued pantoprazole 40 mg PO DAILY 30 tabs 2RF K21.9 - Gastro-esophageal reflux disease without esophagitis ondansetron Only take one every 12 hours as needed if you have nausea 4 mg PO Q12H 20 tabs 0RF nausea and vomiting R11.0 - Nausea Telehealth Telehealth Location of provider rendering services: practice address Location of patient: address on file Patient Identification confirmed using: Name, : Yes Telehealth method: video Patient verbally consented to treatment: Yes Patient verbally consented to billing insurance company: Yes Patient informed of any privacy concerns related to visit: Yes Coding Level of Care Code Global (23060) Diagnoses S/P laparoscopic sleeve gastrectomy Z98.84
[2023-05-17 09:50] VITALS: BMI 32.4
== END 2023-05-17 09:57 | disposition home or self-care (01) ==
LOC: HO.HBS 09:55
PROVIDERS: PCP Family Medicine; Visit Provider Physician Assistant
DX: Z98.84 Bariatric surgery status (principal)
CPT/HCPCS: 99024

== ENCOUNTER → 2023-05-17 09:30 | Outpatient (BNVA) | payer OTHER, SELFPAY | PROVIDERS: PCP Family Medicine; Visit Provider Physician Assistant ==

== ENCOUNTER 2023-06-12 10:00 | Outpatient (AMB) | payer OTHER, SELFPAY ==
--- NOTE | 2023-06-12 09:46 | A.OFFVIS_ITS ---
Intake VS Expanded 06/12/23 10:12 Height 6 ft 2 in Weight 241 lb 9 oz BMI 31.0 Intake Visit Reasons: VIDEO PO LSG 04/20/23 Allergies No Known Allergies Allergy (Verified 04/25/23 11:19) Medication List - Last Reconciled 06/12/23 by Elizabeth Lomeli PA-C pantoprazole 40 mg PO DAILY@0630 sucralfate 10 mL PO BID HPI HPI Comments History of Present Illness Details Pt is now 8 weeks s/p LSG with Dr Valenzuela. 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 He doesn't like having lots of shakes Meal plan per Dr Valenzuela from May 28 Celebrate 1 scoop in 8 oz UAM - 4 times per day two Zone bars Exercise plan - bike spin classes - 5d/week, 150 - 300 calories, sometimes only 15 minute classes PFSH Medical History (Updated 04/22/23 @ 00:07 by Nav Fish) Adjustment disorder, unspecified Back pain BMI 38.0-38.9,adult BMI 39.0-39.9,adult Morbid obesity Vitamin D deficiency Surgical History (Updated 04/25/23 @ 11:19 by Wendy Phelan CMA) Hx of hand surgery Hx of wisdom tooth extraction S/P laparoscopic sleeve gastrectomy Family History Mother Hypertension High cholesterol Father Hypertension Diabetes Sister No problems noted. Brother Diabetes Brother Hydrocephalus Son No problems noted. Daughter No problems noted. Social History Household Members: None Housing: House Are you a primary home care physical therapist to a significant other at home: No Do you presently have visiting nurse or other home services: No Alcohol intake: current Alcohol intake frequency: 0-2 drinks per day Patient Tobacco Use Status: Never used Tobacco Assessment & Plan Assessment & Plan (1) S/P laparoscopic sleeve gastrectomy: Code(s): Z98.84 - Bariatric surgery status Plan: Pt has no complications or complaint. Wants to decrease shakes but does not want food yet. Exercise - change to 4 d spin class to burn at least 400 jed and 2 d TBP videos. Meal plan Celebrate 2 scoops 8 oz UAM - 9am - 11 am and 1pm- 3pm - 2 hours Two Zone bars - 6pm - 1 hour, and later in evening. I told him goal is 3-4 lbs per week and to tet me when he is ready for food in his plan and we will change it. Next appt 4 weeks with me. Medications: Discontinued pantoprazole 40 mg PO DAILY 30 tabs 2RF K21.9 - Gastro-esophageal reflux disease without esophagitis ondansetron Only take one every 12 hours as needed if you have nausea 4 mg PO Q12H 20 tabs 0RF nausea and vomiting R11.0 - Nausea Coding Level of Care Code Global (06209) Diagnoses S/P laparoscopic sleeve gastrectomy Z98.84
[2023-06-12 10:12] VITALS: BMI 31.0
== END 2023-06-12 10:29 | disposition home or self-care (01) ==
LOC: HO.HBS 10:27
PROVIDERS: PCP Family Medicine; Visit Provider Physician Assistant
DX: Z98.84 Bariatric surgery status (principal)
CPT/HCPCS: 99024

== ENCOUNTER → 2023-06-12 10:00 | Outpatient (BNVA) | payer OTHER, SELFPAY | PROVIDERS: PCP Family Medicine; Visit Provider Physician Assistant | DX: Z98.84 Bariatric surgery status (principal) ==

== ENCOUNTER 2023-07-12 10:30 | Outpatient (AMB) | payer OTHER, SELFPAY ==
--- NOTE | 2023-07-11 13:53 | A.OFFVIS_ITS ---
Intake Intake Visit Reasons: VIDEO PO LSG 04/20/23 Allergies No Known Allergies Allergy (Verified 04/25/23 11:19) PFSH Medical History (Updated 04/22/23 @ 00:07 by Nav Fish) Adjustment disorder, unspecified Back pain BMI 38.0-38.9,adult BMI 39.0-39.9,adult Morbid obesity Vitamin D deficiency Surgical History (Updated 04/25/23 @ 11:19 by Wendy Phelan CMA) Hx of hand surgery Hx of wisdom tooth extraction S/P laparoscopic sleeve gastrectomy Family History Mother Hypertension High cholesterol Father Hypertension Diabetes Sister No problems noted. Brother Diabetes Brother Hydrocephalus Son No problems noted. Daughter No problems noted. Social History Household Members: None Housing: House Are you a primary human services care specialist to a significant other at home: No Do you presently have visiting nurse or other home services: No Alcohol intake: current Alcohol intake frequency: 0-2 drinks per day Patient Tobacco Use Status: Never used Tobacco Assessment & Plan Assessment & Plan Medications: Discontinued pantoprazole 40 mg PO DAILY 30 tabs 2RF K21.9 - Gastro-esophageal reflux disease without esophagitis ondansetron Only take one every 12 hours as needed if you have nausea 4 mg PO Q12H 20 tabs 0RF nausea and vomiting R11.0 - Nausea Coding Diagnoses
--- NOTE | 2023-07-12 10:47 | MHC.OFFVISWM ---
Intake VS Expanded 07/12/23 10:48 Height 6 ft 2 in Weight 225 lb 5 oz BMI 28.9 Intake Visit Reasons: VIDEO PO LSG 04/20/23 Allergies No Known Allergies Allergy (Verified 04/25/23 11:19) Medication List - Last Reconciled 07/12/23 by Elizabeth Lomeli PA-C pantoprazole 40 mg PO DAILY@0630 sucralfate 10 mL PO BID HPI HPI Comments History of Present Illness Details Pt is now 2.5 months s/p LSG. 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 No nausea, no emesis or reflux. Ready to start food now. Meal plan 9a - 4:1 2 scoops UAM 1pm - same shake 2 bars over course of day Exercise - 40 minutes on bike 2d/ week - 3 d of TBP [facility] Medical History (Updated 07/12/23 @ 10:55 by Elizabeth Lomeli PA-C) Adjustment disorder, unspecified Back pain BMI 38.0-38.9,adult BMI 39.0-39.9,adult Morbid obesity Vitamin D deficiency Surgical History (Updated 04/25/23 @ 11:19 by Wendy Phelan CMA) Hx of hand surgery Hx of wisdom tooth extraction S/P laparoscopic sleeve gastrectomy Family History Mother Hypertension High cholesterol Father Hypertension Diabetes Sister No problems noted. Brother Diabetes Brother Hydrocephalus Son No problems noted. Daughter No problems noted. Social History Household Members: None Housing: House Are you a primary vehicle care specialist to a significant other at home: No Do you presently have visiting nurse or other home services: No Alcohol intake: current Alcohol intake frequency: 0-2 drinks per day Patient Tobacco Use Status: Never used Tobacco Assessment & Plan Assessment & Plan (1) Overweight (BMI 25.0-29.9): Code(s): E66.3 - Overweight Plan: Pt doing very well post op. Continue 2 4:1 shakes - at 9am and 1pm over 1 - 1.5 hours and meal at 6-7pm . dinner - 1 oz lean protein (scrambled egg - lactose intolerance).- over 20 minutes. Then Monday can increase protein to fish or chicken. Next Monday add 1 oz of cooked vegetable. Over the next week add a second of protein. 1 bar over 1 hour after dinner Going on vacation Jul 21 and wants to eat. Theresa ludwig in 3-4 weeks, me in 2 months Patient is not considered stable at this time. I spent 30 minutes in total speaking with the patient via video conference counseling , reviewing records and charting in patients chart. . (2) S/P laparoscopic sleeve gastrectomy: Code(s): Z98.84 - Bariatric surgery status Medications: Discontinued pantoprazole 40 mg PO DAILY 30 tabs 2RF K21.9 - Gastro-esophageal reflux disease without esophagitis ondansetron Only take one every 12 hours as needed if you have nausea 4 mg PO Q12H 20 tabs 0RF nausea and vomiting R11.0 - Nausea Telehealth Telehealth Location of provider rendering services: practice address Location of patient: address on file Patient Identification confirmed using: Name, : Yes Telehealth method: video Patient verbally consented to treatment: Yes Patient verbally consented to billing insurance company: Yes Patient informed of any privacy concerns related to visit: Yes Coding Level of Care Code Global (83516) Diagnoses Overweight (BMI 25.0-29.9) E66.3 S/P laparoscopic sleeve gastrectomy Z98.84
[2023-07-12 10:48] VITALS: BMI 28.9
== END 2023-07-12 11:34 | disposition home or self-care (01) ==
LOC: HO.HBS 11:16
PROVIDERS: PCP Family Medicine; Visit Provider Physician Assistant
DX: E66.3 Overweight (principal); Z68.28 Body mass index [BMI] 28.0-28.9, adult; Z90.3 Acquired absence of stomach [part of]; Z98.84 Bariatric surgery status
CPT/HCPCS: 99024

== ENCOUNTER → 2023-07-12 10:30 | Outpatient (BNVA) | payer OTHER, SELFPAY | PROVIDERS: PCP Family Medicine; Visit Provider Physician Assistant | DX: Z98.84 Bariatric surgery status (principal); E66.3 Overweight ==

== ENCOUNTER → 2023-08-02 10:50 | Outpatient (BNVA) | payer OTHER, SELFPAY | PROVIDERS: PCP Family Medicine; Visit Provider Dietitian, Registered | DX: E66.3 Overweight (principal); Z68.28 Body mass index [BMI] 28.0-28.9, adult; Z98.84 Bariatric surgery status | CPT/HCPCS: 97803 ==

== ENCOUNTER → 2023-08-03 08:53 | Outpatient (BNVA) | payer OTHER, SELFPAY | PROVIDERS: PCP Family Medicine; Visit Provider Physician Assistant ==

== ENCOUNTER 2023-09-18 09:42 | Outpatient (AMB) | payer OTHER, SELFPAY ==
--- NOTE | 2023-09-18 09:46 | MHC.OFFVISWM ---
Intake VS Expanded 09/18/23 10:11 BP 121/61 Blood Pressure Location Rt brachial Blood Pressure Position Sitting Pulse 76 Pulse Source Pulse Oximeter Temp 96.9 F Temperature Source Skin Pulse Oximetry 99 Oxygen Delivery Method Room Air Oxygen Flow Rate 0 Height 6 ft 2 in Weight 212 lb BMI 27.2 Body Fat % 21.8 Body Fat Mass 46 Fat Free Mass 165.8 Visceral Fat Rating 7 Body Water % 55.4 Body Water Mass 117.2 Muscle Mass/Score 157.6 Basal Metabolic Rate/Score 2,222 Intake Visit Reasons: (OV) PO LSG 04/20/23 Allergies No Known Allergies Allergy (Verified 04/25/23 11:19) Medication List - Last Reconciled 09/18/23 by Elizabeth Lomeli PA-C [id number]-kyl-eekh-FA-vit K 45 mg iron- 800 mcg-120 mcg (Bariatric Multivitamins) caps PO HPI HPI Comments History of Present Illness Details Pt is now 5 months s/p LSg, [employer] weight of 321 lbs, TBWL is 109 lbs or 34%. Feels he have plateaued his weight loss, he Post op complications: none [place]: never DM: never HTN: never Hyperlipidemia: never GERD: 0-Satisfaction with present condition - satisfied Exercise - walks 2 miles under 20 minutes 3 d/week - calories burned? TBP videos 2d/ week - 30 minutes. Meal plan - 2 shakes with 8 oz Failife and 1 scoop Premier. Dinner of 1 oz protein and 2 oz vegetables bar in evening - 5d/ week [facility] Medical History (Updated 07/12/23 @ 10:55 by Elizabeth Lomeli PA-C) BMI 38.0-38.9,adult Adjustment disorder, unspecified BMI 39.0-39.9,adult Vitamin D deficiency Back pain Morbid obesity Surgical History (Updated 04/25/23 @ 11:19 by Wendy Phealn CMA) S/P laparoscopic sleeve gastrectomy Hx of hand surgery Hx of wisdom tooth extraction Family History Mother Hypertension High cholesterol Father Hypertension Diabetes Sister No problems noted. Brother Diabetes Brother Hydrocephalus Son No problems noted. Daughter No problems noted. Social History Household Members: None Housing: House Are you a primary critical care registered nurse to a significant other at home: No Do you presently have visiting nurse or other home services: No Alcohol intake: current Alcohol intake frequency: 0-2 drinks per day Patient Tobacco Use Status: Never used Tobacco Physical Exam Const General: cooperative, healthy appearing and no acute distress GI Inspection: Yes incision (all well healed) and Yes Abdominal panniculus present Palpation (GI): Soft to palpation, nontender, no hernias and no masses Assessment & Plan Assessment & Plan (1) Overweight (BMI 25.0-29.9): Code(s): E66.3 - Overweight Plan: 5 months post LSG doing great. needs90 grams per day. Continue 2 shakes -76 grams dinner - 3oz protein, 2oz vegetable, 1 oz fruit half bar as needed Exercise - 300 calories on walks - goal of 2,000 per week. TBP 4 d/ week. POst op labs ordered Appt withChristina within 1 month me at 9 months (2) S/P laparoscopic sleeve gastrectomy: Code(s): Z98.84 - Bariatric surgery status Orders: Orders Insulin Today E66.3 - Overweight, Z98.84 - Bariatric surgery status Complete Blood Count Auto Diff Today E66.3 - Overweight, Z98.84 - Bariatric surgery status Vitamin B12 and Folate Today E66.3 - Overweight, Z98.84 - Bariatric surgery status Ferritin Today E66.3 - Overweight, Z98.84 - Bariatric surgery status PTHI Today E66.3 - Overweight, Z98.84 - Bariatric surgery status Hemoglobin A1c Today E66.3 - Overweight, Z98.84 - Bariatric surgery status Lipid Panel Today E66.3 - Overweight, Z98.84 - Bariatric surgery status IRON PROFILE Today E66.3 - Overweight, Z98.84 - Bariatric surgery status Zinc Today E66.3 - Overweight, Z98.84 - Bariatric surgery status Comprehensive Met. Panel Today E66.3 - Overweight, Z98.84 - Bariatric surgery status Vitamin B1 Today E66.3 - Overweight, Z98.84 - Bariatric surgery status Vitamin A Today E66.3 - Overweight, Z98.84 - Bariatric surgery status C Reactive Protein Today E66.3 - Overweight, Z98.84 - Bariatric surgery status TSH reflex Free T4 Today E66.3 - Overweight, Z98.84 - Bariatric surgery status Vitamin D 25-OH Total Today E66.3 - Overweight, Z98.84 - Bariatric surgery status Coding Level of Care Code Est Pt Level 4 (75549) Diagnoses Overweight (BMI 25.0-29.9) E66.3 S/P laparoscopic sleeve gastrectomy Z98.84
[2023-09-18 10:11] VITALS: BP 121/61; PULSE 76; TEMP 36.1; O2SAT 99; BMI 27.2
== END 2023-09-18 10:28 | disposition home or self-care (01) ==
PROVIDERS: PCP Family Medicine; Visit Provider Physician Assistant
DX: E66.3 Overweight (principal); Z68.27 Body mass index [BMI] 27.0-27.9, adult; Z90.3 Acquired absence of stomach [part of]; Z98.84 Bariatric surgery status
CPT/HCPCS: 99214

== ENCOUNTER → 2023-09-18 09:42 | Outpatient (BNVA) | payer OTHER, SELFPAY | PROVIDERS: PCP Family Medicine; Visit Provider Physician Assistant | DX: Z98.84 Bariatric surgery status (principal); E66.3 Overweight ==

== ENCOUNTER 2023-10-23 08:38 | Outpatient (AMB) | payer OTHER, SELFPAY ==
--- NOTE | 2023-10-23 08:30 | MHC.AMNUTRGE ---
Intake Intake Visit Reasons: VIDEO PO LSG 04/20/23 Allergies No Known Allergies Allergy (Verified 04/25/23 11:19) HPI Nutrition Presentation Details [facility] [place] 04/20/23 [employer] weight 321# preop weight 278# Last weight at 2.5 MO PO 225# current weight at 3.5 MO PO 219 current weight at 6 MO PO 211# pts goal weight is 190-200 Noted current body composition and is very close to healthy body fat percentage Reason for consult elevated BMI Diet Assmnt Details 2 shakes Pure protein varies between premades and powder with farilife - pt states doing great 1 Pure protein protein bar 2oz protein, 1 oz of vegetables Exercise: 5 days p0er week total with 2-3 days cardio 30 minutes plus 20-30 outdoor Hydration: adequate Celebrate bariatric MVI Dietary counseling reduction Diagnosis Nutrition problem #1 overweight/obesity As related to (etiology) #1 excess energy intake and physical inactivity As evidenced by (sign/symptom) #1 high BMI Monitoring/Goals Nutrition problem monitoring total energy intake, level of knowledge/skill, total PRO intake, total CHO intake, weight and oral fluids Outcome progress progressing Learning/Education Readiness to learn excellent Stages of change action Most Recent Diabetes Results: No Data to Display [facility] Medical History (Updated 07/12/23 @ 10:55 by Elizabeth Lomeli PA-C) BMI 38.0-38.9,adult Adjustment disorder, unspecified BMI 39.0-39.9,adult Vitamin D deficiency Back pain Morbid obesity Surgical History (Updated 04/25/23 @ 11:19 by Wendy Phelan CMA) S/P laparoscopic sleeve gastrectomy Hx of hand surgery Hx of wisdom tooth extraction Family History Mother Hypertension High cholesterol Father Hypertension Diabetes Sister No problems noted. Brother Diabetes Brother Hydrocephalus Son No problems noted. Daughter No problems noted. Social History Household Members: None Housing: House Are you a primary home care liaison to a significant other at home: No Do you presently have visiting nurse or other home services: No Alcohol intake: current Alcohol intake frequency: 0-2 drinks per day Patient Tobacco Use Status: Never used Tobacco Assessment & Plan Assessment & Plan (1) Overweight (BMI 25.0-29.9): Code(s): E66.3 - Overweight Plan continue f/u with Elizabeth SCHULTZ and encouraged communication as needed Patient Instructions: Recommend increasing resistance training exercises to help further improve body composition Telehealth Telehealth Location of provider rendering services: practice address Location of patient: address on file Patient Identification confirmed using: Name, : Yes Telehealth method: video Patient verbally consented to treatment: Yes Patient verbally consented to billing insurance company: Yes Patient informed of any privacy concerns related to visit: Yes Minutes spent on Phone/Video with Pt.: 20 Coding Level of Care Code Nutr Indiv Subseq ([id number]) Diagnoses Overweight (BMI 25.0-29.9) E66.3 Time Spent (min) 20
== END 2023-10-23 08:57 | disposition home or self-care (01) ==
LOC: HO.HBS 08:38
PROVIDERS: PCP Family Medicine; Visit Provider Dietitian, Registered
DX: E66.3 Overweight (principal)

== ENCOUNTER → 2023-10-23 08:38 | Outpatient (BNVA) | payer OTHER, SELFPAY | PROVIDERS: PCP Family Medicine; Visit Provider Dietitian, Registered | DX: E66.3 Overweight (principal); Z98.84 Bariatric surgery status; Z71.3 Dietary counseling and surveillance | CPT/HCPCS: 97803 ==

== ENCOUNTER 2023-11-07 08:39 | Outpatient (REF) | payer OTHER, SELFPAY ==
[2023-11-07 08:59] LABS: MANUAL DIFF FLAG NO
[2023-11-07 09:36] LABS: Basophils Percent Auto 0.8 % (0-2); Eosinophils Absolute Auto 0.1 X10*3/uL (0.0-0.4); Eosinophils Percent Auto 2.8 % (0-4); Hematocrit 42.1 % (42.0-52.0); Hemoglobin 14.5 g/dl (14.0-18.0); Lymphocytes Absolute Auto 1.6 X10*3/uL (1.2-4.9); Lymphocytes Percent Auto 44.7 % (20-40); Mean Corpuscular HGB Conc 34.4 g/dl (31.0-36.0); Mean Platelet Volume 10.2 fL (9.4-12.4); Monocytes Absolute Auto 0.4 X10*3/uL (0.1-1.2); Neutrophils Absolute Auto 1.5 x10*3/uL (2.0-8.3); Neutrophils Percent Auto 41.7 % (45-73); Platelet Count 161 X10*3/uL (160-400); Red Blood Count 4.68 X10*6/uL (4.60-5.80); Red Cell Distribution Width 12.5 % (11.0-16.0); White Blood Count 3.6 X10*3/uL (4.8-10.8)
[2023-11-07 10:15] LABS: Estimated Average Glucose 94 mg/dL; Hemoglobin A1c % 4.9 % (<6.0)
[2023-11-07 10:17] LABS: Alanine Aminotransferase 34 U/L (0-40); Albumin Level 4.3 g/dL (3.5-5.0); Alkaline Phosphatase 67 U/L (39-117); Anion Gap 11 (12-20); Aspartate Amino Transferase 20 U/L (5-37); Bilirubin Total 1.6 mg/dL (0.0-1.0); Blood Urea Nitrogen 20 mg/dL (9-16); C Reactive Protein < 0.10 mg/dL (< or = 0.50); Calcium 9.6 mg/dL (8.4-10.2); Carbon Dioxide 32 mmol/L (22-29); Chloride 105 mmol/L (96-108); Cholesterol 151 mg/dL (<200); Estimated Glomerular Filt Rate > 60; Glucose Random 90 mg/dL (60-115); HDL Cholesterol 47 mg/dL (>40); Iron 125 mcg/dL (45-160); LDL Cholesterol Calculated 86 mg/dL (<100); Percent Iron Saturation 46 % (15-50); Potassium 3.7 mmol/L (3.3-5.1); Sodium 144 mmol/L (135-145); Total Iron Binding Capacity 271 mcg/dL (228-428); Total Protein 6.6 g/dL (6.5-8.0); Triglycerides 93 mg/dL (<150); Unsaturated Iron Binding 146 ug/dL
[2023-11-07 10:38] LABS: Ferritin 332 ng/mL (20-250); Insulin 4 uU/mL (2-29); TSH reflex Free T4 2.86 uIU/mL (0.32-4.0); Vitamin D 25-OH Total 37.9 ng/mL (>30)
[2023-11-07 12:26] LABS: Folate 13.2 ng/mL (> or = 4.0); Vitamin B12 706 pg/mL (200-900)
[2023-11-09 15:24] LABS: Zinc 75 mcg/dL (60-130)
[2023-11-10 19:13] LABS: Vitamin A 49 mcg/dL (38-98)
[2023-11-12 14:28] LABS: Vitamin B1 16 nmol/L (8-30)
== END 2023-11-07 08:40 | disposition home or self-care (01) ==
LOC: HO.LAB 08:39
PROVIDERS: Visit Provider Physician Assistant
DX: E66.3 Overweight (principal); Z98.84 Bariatric surgery status
CPT/HCPCS: 36415; 80053; 80061; 82306; 82607; 82728; 82746; 83036; 83525; 83540; 84425; 84443; 84590; 84630; 85025; 86140

== ENCOUNTER 2023-12-22 09:21 | Outpatient (AMB) | payer OTHER, SELFPAY ==
--- NOTE | 2023-12-22 09:22 | A.OFFVIS_ITS ---
Intake VS Expanded 12/22/23 09:28 BP 118/60 Blood Pressure Location Rt brachial Blood Pressure Position Sitting Pulse 75 Pulse Source Pulse Oximeter Temp 96.6 F L Temperature Source Temporal Artery Scan Pulse Oximetry 100 Oxygen Delivery Method Room Air Height 6 ft 2 in Weight 213 lb 12.8 oz BMI 27.4 Body Fat % 22.7 Body Fat Mass 48.6 Fat Free Mass 165.2 Visceral Fat Rating 8.0 Body Water % 45.5 Body Water Mass 116.4 Muscle Mass/Score 157.0 Basal Metabolic Rate/Score 2,215 Intake Visit Reasons: (OV) PO LSG 04/20/23 Allergies No Known Allergies Allergy (Verified 12/22/23 09:24) Medication List - Last Reconciled 12/22/23 by Elizabeth Lomeli PA-C eopjxftfyidp-rxl-yzen-FA-vit K 45 mg iron- 800 mcg-120 mcg (Bariatric Multivitamins) caps PO HPI HPI Comments History of Present Illness Details Pt is 9 months s/p LSG . [employer] weight of 321 lbs , TBWL is 107.2 lbs or 33.3%. Goal weight of 190 - 200 lbs. had appt with Theresa recently. No n/v, abd pain or reflux. Meal plan: wakes up 7:30. Only getting 5 hours sleep per night recently. He's working a lot more now. 9 - 10 - Premier or Pure protein with UA M 1 pm - another shake 6 pm -3 oz protein , 1 oz vegetables Exercise - bike and rowing machine for 3,000 jed per week over 5-6 days. [facility] Medical History (Updated 07/12/23 @ 10:55 by Elizabeth Lomeli PA-C) BMI 38.0-38.9,adult Adjustment disorder, unspecified BMI 39.0-39.9,adult Vitamin D deficiency Back pain Morbid obesity Surgical History S/P laparoscopic sleeve gastrectomy Hx of hand surgery Hx of wisdom tooth extraction Family History Mother Hypertension High cholesterol Father Hypertension Diabetes Sister No problems noted. Brother Diabetes Brother Hydrocephalus Son No problems noted. Daughter No problems noted. Social History Household Members: None Housing: House Are you a primary critical care unit nurse to a significant other at home: No Do you presently have visiting nurse or other home services: No Alcohol intake: current Alcohol intake frequency: 0-2 drinks per day Patient Tobacco Use Status: Never used Tobacco Assessment & Plan Assessment & Plan (1) Overweight (BMI 25.0-29.9): Code(s): E66.3 - Overweight Plan: 9 mos post op with short weight loss plateau. Will add bar in evening to reach 90 - 95 grams per day. Exercise - bike and rowing machine 3000 per week over 5-[address] for UE 3 d/week. Next appt with PA in 2 months, then April for his annual exam appt. We discussed how he needs to sleep more and this may the reason for his current weight plateau. Will continue to text me weekly. I spent 27 minutes in total with patient reviewing/updating records, examining the patient and counseling the patient on weight management as detailed above. (2) S/P laparoscopic sleeve gastrectomy: Code(s): Z98.84 - Bariatric surgery status Plan see above Coding Level of Care Code Est Pt Level 4 (61402) Diagnoses Overweight (BMI 25.0-29.9) E66.3 S/P laparoscopic sleeve gastrectomy Z98.84
[2023-12-22 09:28] VITALS: BP 118/60; PULSE 75; TEMP 35.9; O2SAT 100; BMI 27.4
== END 2023-12-22 09:52 | disposition home or self-care (01) ==
PROVIDERS: PCP Family Medicine; Visit Provider Physician Assistant
DX: E66.3 Overweight (principal); Z68.27 Body mass index [BMI] 27.0-27.9, adult; Z90.3 Acquired absence of stomach [part of]; Z98.84 Bariatric surgery status
CPT/HCPCS: 99214

== ENCOUNTER → 2023-12-22 09:21 | Outpatient (BNVA) | payer OTHER, SELFPAY | PROVIDERS: PCP Family Medicine; Visit Provider Physician Assistant | DX: Z98.84 Bariatric surgery status (principal); E66.3 Overweight ==

== ENCOUNTER 2024-02-23 10:17 | Outpatient (AMB) | payer OTHER, SELFPAY ==
[2024-02-23 08:44] VITALS: BMI 27.0
--- NOTE | 2024-02-23 08:44 | A.OFFVIS_ITS ---
VS Expanded 02/23/24 08:44 Height 6 ft 2 in Weight 210 lb BMI 27.0 Body Fat % 22.1 Body Fat Mass 46.4 Fat Free Mass 163.6 Visceral Fat Rating 10 Body Water % 56.2 Body Water Mass 118 Muscle Mass/Score 155.4 Basal Metabolic Rate/Score 1,976 Intake Visit Reasons: (TV) PO LSG 04/20/23 City Driver Required: No Allergies No Known Allergies Allergy (Verified 12/22/23 09:24) Medication List - Last Reconciled 02/23/24 by ANTOINE Pearson kixitlvvotjk-zii-jclg-FA-vit K 45 mg iron- 800 mcg-120 mcg (Bariatric Multivitamins) caps PO HPI Comments Details: This?a?33?yo male who is s/p LSG without hiatal hernia repair on?04/20/2023. Presents for 10 month post op visit. Weight today is 210 pounds, with a BMI of 27. There has been a 111.6 pound weight loss,(initial weight 321.6 pounds) since starting the program on 01/18/2023 reflecting a 34.7% total body weight loss and a weight loss of 67.2 pounds since surgery (operative weight 277.2 pounds) reflecting a 24.2% TBWL since surgery. No complaints of nausea, emesis, abdominal pain or reflux. He states that he feels great, improved energy. States that he has been 208-214 over the last 2 months. Lowest was 202 and it was not achievable. Feels as though he is satisfied with his current weight. Present meal plan includes: 2 shakes pure protein 1 scoop in 8 oz almond milk , 25 gm each, 10-12, 1-3 meal, 5-6 pm, 5 oz veg, 5-7 oz protein bar, pure protein bar, 20 gm (4-5 nights per week) Drinkin-60 oz water, no juice, seltzer or no sugar/jed occasionally Exercise routine includes: walking at work rowing machine or stationary bike 4 days per week, 400-500 calories on the bike [facility] Medical History BMI 38.0-38.9,adult Adjustment disorder, unspecified BMI 39.0-39.9,adult Vitamin D deficiency Back pain Morbid obesity Surgical History S/P laparoscopic sleeve gastrectomy Hx of hand surgery Hx of wisdom tooth extraction Family History Mother Hypertension High cholesterol Father Hypertension Diabetes Sister No problems noted. Brother Diabetes Brother Hydrocephalus Son No problems noted. Daughter No problems noted. Social History Household Members: None Housing: House Are you a primary career technical education teacher to a significant other at home: No Do you presently have visiting nurse or other home services: No Alcohol intake: current Alcohol intake frequency: 0-2 drinks per day Patient Tobacco Use Status: Never used Tobacco Physical Exam Vital Signs: BMI result Body Mass Index 27.0 Telehealth Telehealth Location of provider rendering services: practice address Location of patient: other Patient Identification confirmed using: Name, : Yes Telehealth method: voice only Patient verbally consented to treatment: Yes Patient verbally consented to billing insurance company: Yes Patient informed of any privacy concerns related to visit: Yes Minutes spent on Phone/Video with Pt.: 20 Assessment & Plan Assessment & Plan (1) S/P laparoscopic sleeve gastrectomy: Code(s): Z98.84 - Bariatric surgery status Category: Surgical Plan: Patient stated goal is approximately 2052-10 lb. We will change meal plans slightly. 2 shakes pure protein 1 scoop in 8 oz almond milk , 25 gm each, 10-12, 1-3 meal, 5-6 pm, 5 oz veg, 5 oz protein Remove the bar at night. Add 1 cup fresh fruit such as apples, pear, kiwi, berries as needed. Increase exercise to improve consistency to 4-5 days per week, 400-500 calories burned each session. He will follow up in the office as scheduled. Encouraged to text weekly and with any questions or concerns.
== END 2024-02-23 10:23 | disposition home or self-care (01) ==
LOC: HO.HBS 10:17
PROVIDERS: PCP Family Medicine; Visit Provider Physician Assistant Surgical
DX: E66.3 Overweight (principal); Z68.27 Body mass index [BMI] 27.0-27.9, adult; Z90.3 Acquired absence of stomach [part of]; Z98.84 Bariatric surgery status
CPT/HCPCS: 99213

== ENCOUNTER → 2024-02-23 10:17 | Outpatient (BNVA) | payer OTHER, SELFPAY | PROVIDERS: PCP Family Medicine; Visit Provider Physician Assistant Surgical | DX: Z98.84 Bariatric surgery status (principal); E66.3 Overweight ==

== ENCOUNTER 2024-04-22 09:18 | Outpatient (AMB) | payer OTHER, SELFPAY ==
--- NOTE | 2024-04-22 09:19 | MHC.OFFVISWM ---
VS Expanded 04/22/24 09:26 BP 131/67 Blood Pressure Location Rt brachial Blood Pressure Position Sitting Pulse 78 Pulse Source Pulse Oximeter Temp 95.5 F L Temperature Source Temporal Artery Scan Pulse Oximetry 100 Oxygen Delivery Method Room Air Height 6 ft 2 in Weight 214 lb 3.2 oz BMI 27.5 Body Fat % 29.6 Body Fat Mass 63.2 Fat Free Mass 150.8 Visceral Fat Rating 4.0 Body Water % 50.5 Body Water Mass 108.0 Muscle Mass/Score 143.4 Basal Metabolic Rate/Score 2,043 Intake Visit Reasons: (OV) PO LSG 04/20/23 Field Reviewer Required: No Allergies No Known Allergies Allergy (Verified 04/22/24 09:22) Medication List - Last Reconciled 04/22/24 by ANTOINE Pearson uxgbnpzamqtb-gtd-fxxs-FA-vit K 45 mg iron- 800 mcg-120 mcg (Bariatric Multivitamins) caps PO HPI Comments Details: This?a?33?yo male who is s/p LSG without hiatal hernia repair on?04/20/2023. Presents for 1 year post op visit. Weight today is 214.2 pounds, with a BMI of 27.5. There has been a 107.4 pound weight loss,(initial weight 321.6 pounds) since starting the program on 01/18/2023 reflecting a 33.3% total body weight loss and a weight loss of 63 pounds since surgery (operative weight 277.2 pounds) reflecting a 22.7% TBWL since surgery. No complaints of nausea, emesis, abdominal pain or reflux. He states that he feels great, improved energy. States that he has been 212-216 over the last 3 months. Feels great and comfortable in his body. States he switched protein supplement to isopure Present meal plan includes: 2 shakes isopure 1 scoop in 8 oz almond milk , 20 gm each, 10-12, 1-3 meal, 5-6 pm, 3 oz veg, 5 oz protein Add 1 cup fresh fruit such as apples, pear, kiwi, berries as needed. Drinkin-60 oz water, no juice, seltzer or no sugar/jed occasionally Exercise routine includes: walking at work outdoor bike 3 x per week 3 miles eliptical/rowing machine 2-3 days per week, not tracking calories Any post op complications: none [place]: never DM: never HTN: never Hyperlipidemia: never GERD:?0-5 scale ??0 = no symptoms ??1 = symptoms noticeable but not bothersome 2 =symptoms bothersome but not daily ? 3 = symptoms bothersome and daily 4 = symptoms affect daily activities 5 = symptoms are incapacitating, unable to do daily activities ? How bad is the heartburn: 0 ? Heartburn while lying down: 0 ? Heartburn when standing up: 0 ? Heartburn after meals: 0 ? Does heartburn change your diet: 0 ? Does heartburn wake you up from sleep: 0 ? Do you have difficulty swallowin ? Do you have pain with swallowin ? If you take medicine for your reflux, does this affect your daily life: 0 Satisfaction with present condition - satisfied or not satisfied: satisfied [facility] Medical History BMI 38.0-38.9,adult Adjustment disorder, unspecified BMI 39.0-39.9,adult Vitamin D deficiency Back pain Morbid obesity Surgical History S/P laparoscopic sleeve gastrectomy Hx of hand surgery Hx of wisdom tooth extraction Family History Mother Hypertension High cholesterol Father Hypertension Diabetes Sister No problems noted. Brother Diabetes Brother Hydrocephalus Son No problems noted. Daughter No problems noted. Social History Household Members: None Housing: House Are you a primary professional healthcare representative to a significant other at home: No Do you presently have visiting nurse or other home services: No Alcohol intake: current Alcohol intake frequency: a few times a week Patient Tobacco Use Status: Never used Tobacco Review of Systems Const All systems reviewed & are unremarkable except as noted in HPI and below Physical Exam Const General: cooperative and no acute distress Orientation/consciousness: patient oriented x3 Resp Effort & Inspection: normal respiratory effort Auscultation: clear to auscultation bilaterally Cardio Rate: regular rate Rhythm: regular rhythm GI Inspection: Yes normal to inspection and Yes incision (well healed) Palpation (GI): Soft to palpation and no masses Neuro General: patient oriented x3 Assessment & Plan Assessment & Plan (1) S/P laparoscopic sleeve gastrectomy: Code(s): Z98.84 - Bariatric surgery status Category: Surgical Plan: Check yearly labs. Change meal plans slightly: 2 shakes isopure 1.5 scoop in 8 oz almond milk for the first and 1 scoop in the second , 20 gm each, 10-12, 1-3 meal, 5-6 pm, 8 forks protein, 6 forks veggies Add 1 cup fresh fruit such as apples, pear, kiwi, berries as needed. Encouraged to track calories while exercising, if 5 days per week, goal 400 calories per session. We will have him return to the office in approximately 6 weeks. He was encouraged to text weekly with weight and if any questions or concerns. Orders: Orders Complete Blood Count Auto Diff Today E66.3 - Overweight, K74.00 - Hepatic fibrosis, unspecified, Z98.84 - Bariatric surgery status Lipid Panel Today E66.3 - Overweight, K74.00 - Hepatic fibrosis, unspecified, Z98.84 - Bariatric surgery status Zinc Today E66.3 - Overweight, K74.00 - Hepatic fibrosis, unspecified, Z98.84 - Bariatric surgery status Vitamin B1 Today E66.3 - Overweight, K74.00 - Hepatic fibrosis, unspecified, Z98.84 - Bariatric surgery status Vitamin A Today E66.3 - Overweight, K74.00 - Hepatic fibrosis, unspecified, Z98.84 - Bariatric surgery status Ferritin Today E66.3 - Overweight, K74.00 - Hepatic fibrosis, unspecified, Z98.84 - Bariatric surgery status Vitamin D 25-OH Total Today E66.3 - Overweight, K74.00 - Hepatic fibrosis, unspecified, Z98.84 - Bariatric surgery status Basic Metabolic Panel Today E66.3 - Overweight, K74.00 - Hepatic fibrosis, unspecified, Z98.84 - Bariatric surgery status Insulin Today E66.3 - Overweight, K74.00 - Hepatic fibrosis, unspecified, Z98.84 - Bariatric surgery status Hemoglobin A1c Today E66.3 - Overweight, K74.00 - Hepatic fibrosis, unspecified, Z98.84 - Bariatric surgery status IRON PROFILE Today E66.3 - Overweight, K74.00 - Hepatic fibrosis, unspecified, Z98.84 - Bariatric surgery status Vitamin B12 and Folate Today E66.3 - Overweight, K74.00 - Hepatic fibrosis, unspecified, Z98.84 - Bariatric surgery status C Reactive Protein Today E66.3 - Overweight, K74.00 - Hepatic fibrosis, unspecified, Z98.84 - Bariatric surgery status TSH reflex Free T4 Today E66.3 - Overweight, K74.00 - Hepatic fibrosis, unspecified, Z98.84 - Bariatric surgery status
[2024-04-22 09:26] VITALS: BP 131/67; PULSE 78; TEMP 35.3; O2SAT 100; BMI 27.5
== END 2024-04-22 09:50 | disposition home or self-care (01) ==
PROVIDERS: PCP Family Medicine; Visit Provider Physician Assistant Surgical
DX: E66.3 Overweight (principal); Z68.27 Body mass index [BMI] 27.0-27.9, adult; Z90.3 Acquired absence of stomach [part of]; Z98.84 Bariatric surgery status
CPT/HCPCS: 99214

== ENCOUNTER → 2024-04-22 09:18 | Outpatient (BNVA) | payer OTHER, SELFPAY | PROVIDERS: PCP Family Medicine; Visit Provider Physician Assistant Surgical | DX: Z98.84 Bariatric surgery status (principal); E66.3 Overweight ==

== ENCOUNTER 2024-04-25 07:12 | Outpatient (REF) | payer OTHER, SELFPAY ==
[2024-04-25 07:25] LABS: MANUAL DIFF FLAG NO
[2024-04-25 07:40] LABS: Eosinophils Absolute Auto 0.1 X10*3/uL (0.0-0.4); Eosinophils Percent Auto 3.6 % (0-4); Hematocrit 43.8 % (42.0-52.0); Hemoglobin 15.4 g/dl (14.0-18.0); Lymphocytes Absolute Auto 2.1 X10*3/uL (1.2-4.9); Lymphocytes Percent Auto 53.5 % (20-40); Mean Corpuscular HGB Conc 35.2 g/dl (31.0-36.0); Mean Corpuscular Hemoglobin 31.4 pg (27.0-33.0); Mean Corpuscular Volume 89.4 fL (80.0-98.0); Mean Platelet Volume 10.1 fL (9.4-12.4); Monocytes Absolute Auto 0.3 X10*3/uL (0.1-1.2); Monocytes Percent Auto 8.8 % (2-11); Neutrophils Absolute Auto 1.3 x10*3/uL (2.0-8.3); Neutrophils Percent Auto 33.1 % (45-73); Platelet Count 174 X10*3/uL (160-400); Red Cell Distribution Width 12.1 % (11.0-16.0); White Blood Count 3.9 X10*3/uL (4.8-10.8)
[2024-04-25 07:51] LABS: Estimated Average Glucose 97 mg/dL
[2024-04-25 08:25] LABS: Anion Gap 10 (12-20); Blood Urea Nitrogen 12 mg/dL (9-16); C Reactive Protein < 0.10 mg/dL (< or = 0.50); Calcium 9.9 mg/dL (8.4-10.2); Carbon Dioxide 30 mmol/L (22-29); Chloride 106 mmol/L (96-108); Cholesterol 148 mg/dL (<200); Estimated Glomerular Filt Rate > 60; Glucose Random 98 mg/dL (60-115); HDL Cholesterol 53 mg/dL (>40); Iron 117 mcg/dL (45-160); LDL Cholesterol Calculated 82 mg/dL (<100); Percent Iron Saturation 48 % (15-50); Potassium 3.8 mmol/L (3.3-5.1); Sodium 142 mmol/L (135-145); Total Iron Binding Capacity 245 mcg/dL (228-428); Triglycerides 66 mg/dL (<150); Unsaturated Iron Binding 128 ug/dL
[2024-04-25 08:43] LABS: Ferritin 372 ng/mL (20-250); Insulin 5 uU/mL (2-29); TSH reflex Free T4 1.78 uIU/mL (0.32-4.0); Vitamin D 25-OH Total 34.6 ng/mL (>30)
[2024-04-25 08:46] LABS: Folate 12.2 ng/mL (> or = 4.0); Vitamin B12 819 pg/mL (200-900)
[2024-04-29 09:22] LABS: Zinc 87 mcg/dL (60-130)
[2024-04-29 16:29] LABS: Vitamin A 45 mcg/dL (38-98)
[2024-05-04 11:49] LABS: Vitamin B1 10 nmol/L (8-30)
== END 2024-04-25 07:13 | disposition home or self-care (01) ==
LOC: HO.LAB 07:12
PROVIDERS: PCP Family Medicine; Visit Provider Physician Assistant Surgical
DX: E66.3 Overweight (principal); K74.00 Hepatic fibrosis, unspecified; Z98.84 Bariatric surgery status; Z13.1 Encounter for screening for diabetes mellitus; Z13.29 Encounter for screening for other suspected endocrine disorder
CPT/HCPCS: 36415; 80048; 80061; 82306; 82607; 82728; 82746; 83036; 83525; 83540; 84425; 84443; 84590; 84630; 85025; 86140

== ENCOUNTER 2024-06-20 11:04 | Outpatient (AMB) | payer OTHER, SELFPAY ==
[2024-06-20 09:09] VITALS: BMI 27.2
--- NOTE | 2024-06-20 09:09 | A.OFFVIS_ITS ---
VS Expanded 06/20/24 09:09 Height 6 ft 2 in Weight 212 lb 3 oz BMI 27.2 Body Fat % 22.6 Body Fat Mass 48 Fat Free Mass 164.3 Visceral Fat Rating 10 Body Water % 55.9 Body Water Mass 118.7 Muscle Mass/Score 156 Basal Metabolic Rate/Score 1,993 Intake Visit Reasons: tv PO LSG 04/20/24 Public Information Officer Required: No Allergies No Known Allergies Allergy (Verified 04/22/24 09:22) Medication List - Last Reconciled 06/20/24 by ANTOINE Pearson ucatdfqkyzqc-dpm-rtkr-FA-vit K 45 mg iron- 800 mcg-120 mcg (Bariatric Multivitamins) caps PO HPI Comments Details: This?a?33?yo male who is s/p LSG without hiatal hernia repair on?04/20/2023. Presents for 1 year 2 month post op visit. Weight today is 212.3 pounds, with a BMI of 27.2. There has been a 109.3 pound weight loss,(initial weight 321.6 pounds) since starting the program on 01/18/2023 reflecting a 33.9% total body weight loss and a weight loss of 64.9 pounds since surgery (operative weight 277.2 pounds) reflecting a 23.4% TBWL since surgery. No complaints of nausea, emesis, abdominal pain or reflux. He states that he feels great, improved energy. States that he has been 212-216 over the last 3 months. Feels great and comfortable in his body. States he switched protein supplement to isopure Present meal plan includes: 2 shakes isopure 1.5 scoop in 8 oz almond milk for the first and 1 scoop in the second , 20 gm each, 10-12, 1-3 meal, 5-6 pm, 8 forks protein, 6 forks veggies Add 1 cup fresh fruit such as apples, pear, kiwi, berries as needed. Drinkin-60 oz water, no juice, seltzer or no sugar/jed occasionally Exercise routine includes: walking at work stationary bike 5 days per week. 500 jed outdoor bike 3 x per week 3 miles eliptical/rowing machine 2-3 days per week, not tracking calories [facility] Medical History BMI 38.0-38.9,adult Adjustment disorder, unspecified BMI 39.0-39.9,adult Vitamin D deficiency Back pain Morbid obesity Surgical History S/P laparoscopic sleeve gastrectomy Hx of hand surgery Hx of wisdom tooth extraction Family History Mother Hypertension High cholesterol Father Hypertension Diabetes Sister No problems noted. Brother Diabetes Brother Hydrocephalus Son No problems noted. Daughter No problems noted. Social History Household Members: None Housing: House Are you a primary multi care technician to a significant other at home: No Do you presently have visiting nurse or other home services: No Alcohol intake: current Alcohol intake frequency: a few times a week Patient Tobacco Use Status: Never used Tobacco Telehealth Telehealth Telehealth Platform: Telephone Location of provider rendering services: practice address Location of patient: address on file Patient Identification confirmed using: Name, : Yes Telehealth method: voice only Patient verbally consented to treatment: Yes Patient verbally consented to billing insurance company: Yes Patient informed of any privacy concerns related to visit: Yes Minutes spent on Phone/Video with Pt.: 15 Assessment & Plan Assessment & Plan (1) Overweight (BMI 25.0-29.9): Code(s): E66.3 - Overweight Category: Medical Plan: Patient is doing very well, maintaining a stable weight. He is satisfied with his meal plan and is exercising regularly. We will continue current plans. Encouraged to text with any questions or concerns. Follow-up in the office as scheduled.
== END 2024-06-20 11:05 | disposition home or self-care (01) ==
LOC: HO.HBS 11:04
PROVIDERS: PCP Family Medicine; Visit Provider Physician Assistant Surgical
DX: E66.3 Overweight (principal)
CPT/HCPCS: 99213

== ENCOUNTER → 2024-06-20 11:04 | Outpatient (BNVA) | payer OTHER, SELFPAY | PROVIDERS: PCP Family Medicine; Visit Provider Physician Assistant Surgical | DX: E66.3 Overweight (principal) ==

== ENCOUNTER 2024-08-08 09:39 | Outpatient (AMB) | payer OTHER, SELFPAY ==
[2024-08-08 09:13] VITALS: BMI 26.8
--- NOTE | 2024-08-08 09:13 | A.OFFVIS_ITS ---
VS Expanded 08/08/24 09:13 Height 6 ft 2 in Weight 208 lb 7 oz BMI 26.8 Intake Visit Reasons: (tV) PO LSG 04/20/23 Senior Credit Analyst Required: No Allergies No Known Allergies Allergy (Verified 04/22/24 09:22) Medication List - Last Reconciled 08/08/24 by ANTOINE Pearson [id number] K 45 mg iron- 800 mcg-120 mcg (Bariatric Multivitamins) caps PO HPI Comments Details: This?a?33?yo male who is s/p LSG without hiatal hernia repair on?04/20/2023. Presents for 1 year 3.5 month post op visit. Weight today is 208.7 pounds, with a BMI of 26.8. There has been a 112.9 pound weight loss,(initial weight 321.6 pounds) since starting the program on 01/18/2023 reflecting a 35.1% total body weight loss and a weight loss of 68.5pounds since surgery (operative weight 277.2 pounds) reflecting a 24.7% TBWL since surgery. No complaints of nausea, emesis, abdominal pain or reflux. He states that he feels great, improved energy. States that he has been 212-216 over the last 3 months. Feels great and comfortable in his body. States he switched protein supplement to isopure Present meal plan includes: 2 shakes isopure 1.5 scoop in 8 oz almond milk for the first and 1 scoop in the second , 20 gm each, 10-12, 1-3 meal, 5-6 pm, 8 forks protein, 6 forks veggies Add 1 cup fresh fruit such as apples, pear, kiwi, berries as needed. Drinkin-60 oz water, no juice, seltzer or no sugar/jed occasionally Exercise routine includes: walking, 5-6 mi 3-4 x per week stationary bike 5 days per week. 500 jed outdoor bike 3 x per week 3 miles rowing machine 2-3 days per week [facility] Medical History BMI 38.0-38.9,adult Adjustment disorder, unspecified BMI 39.0-39.9,adult Vitamin D deficiency Back pain Morbid obesity Surgical History S/P laparoscopic sleeve gastrectomy Hx of hand surgery Hx of wisdom tooth extraction Family History Mother Hypertension High cholesterol Father Hypertension Diabetes Sister No problems noted. Brother Diabetes Brother Hydrocephalus Son No problems noted. Daughter No problems noted. Social History Household Members: None Housing: House Are you a primary daycare worker to a significant other at home: No Do you presently have visiting nurse or other home services: No Alcohol intake: current Alcohol intake frequency: a few times a week Patient Tobacco Use Status: Never used Tobacco Telehealth Telehealth Telehealth Platform: Telephone Location of provider rendering services: practice address Location of patient: address on file Patient Identification confirmed using: Name, : Yes Telehealth method: voice only Patient verbally consented to treatment: Yes Patient verbally consented to billing insurance company: Yes Patient informed of any privacy concerns related to visit: Yes Minutes spent on Phone/Video with Pt.: 15 Assessment & Plan Assessment & Plan (1) Overweight (BMI 25.0-29.9): Code(s): E66.3 - Overweight Category: Medical Plan: Patient is doing exceptionally well. He is following his meal plan and exercise plan. He is very satisfied with his weight loss and wear his weight is currently. He wishes to maintained. He will continue to do so. He was encouraged to potentially add in weightlifting for muscle tone. He will return to the office as scheduled. Encouraged to continue to send weight is weekly and with any questions or concerns.
== END 2024-08-08 10:35 | disposition home or self-care (01) ==
LOC: HO.HBS 09:39
PROVIDERS: PCP Family Medicine; Visit Provider Physician Assistant Surgical
DX: E66.3 Overweight (principal)
CPT/HCPCS: 99213

== ENCOUNTER → 2024-08-08 09:39 | Outpatient (BNVA) | payer OTHER, SELFPAY | PROVIDERS: PCP Family Medicine; Visit Provider Physician Assistant Surgical | DX: Z98.84 Bariatric surgery status (principal); E66.3 Overweight; K74.00 Hepatic fibrosis, unspecified ==

== ENCOUNTER 2024-10-21 09:00 | Outpatient (AMB) | payer OTHER, SELFPAY ==
--- NOTE | 2024-10-21 08:46 | A.OFFVIS_ITS ---
VS Expanded 10/21/24 08:47 Height 6 ft 2 in Weight 211 lb 4 oz BMI 27.1 Body Fat % 22.1 Body Fat Mass 46.7 Fat Free Mass 164.7 Visceral Fat Rating 10 Body Water % 56.2 Body Water Mass 118.8 Muscle Mass/Score 156.5 Basal Metabolic Rate/Score 1,984 Intake Visit Reasons: (tV) PO LSG 04/20/23 Picture Framer Required: No Allergies No Known Allergies Allergy (Verified 04/22/24 09:22) Medication List - Last Reconciled 10/21/24 by ANTOINE Pearson [id number] K 45 mg iron- 800 mcg-120 mcg (Bariatric Multivitamins) caps PO HPI Comments Details: This?a?34?yo male who is s/p LSG without hiatal hernia repair on?04/20/2023. Presents for 1 year 6 month post op visit. Weight today is 211.4 pounds, with a BMI of 27.1. There has been a 110.2 pound weight loss,(initial weight 321.6 pounds) since starting the program on 01/18/2023 reflecting a 34.2% total body weight loss and a weight loss of 65.8 pounds since surgery (operative weight 277.2 pounds) reflecting a 23.7% TBWL since surgery. No complaints of nausea, emesis, abdominal pain or reflux. He states that he feels great, improved energy. States that he has been 212-216 over the last 3 months. Feels great and comfortable in his body. States he switched protein supplement to isopure Present meal plan includes: 2 shakes isopure 1.5 scoop in 8 oz almond milk for the first and 1 scoop in the second , 20 gm each, 10-12, 1-3 meal, 5-6 pm, 8 forks protein, 6 forks veggies Add 1 cup fresh fruit such as apples, pear, kiwi, berries as needed. Drinkin-90 oz water, no juice, seltzer or no sugar/jed occasionally Exercise routine includes: stationary bike 3 days per week. 500 jed rowing machine previously, 2-3 days per week Any post op complications: none [place]: never DM: never HTN: never Hyperlipidemia: never GERD:?0-5 scale ??0 = no symptoms ??1 = symptoms noticeable but not bothersome 2 =symptoms bothersome but not daily ? 3 = symptoms bothersome and daily 4 = symptoms affect daily activities 5 = symptoms are incapacitating, unable to do daily activities ? How bad is the heartburn: 0 ? Heartburn while lying down: 0 ? Heartburn when standing up: 0 ? Heartburn after meals: 0 ? Does heartburn change your diet: 0 ? Does heartburn wake you up from sleep: 0 ? Do you have difficulty swallowin ? Do you have pain with swallowin ? If you take medicine for your reflux, does this affect your daily life: 0 Satisfaction with present condition - satisfied or not satisfied: satisfied [facility] Medical History BMI 38.0-38.9,adult Adjustment disorder, unspecified BMI 39.0-39.9,adult Vitamin D deficiency Back pain Morbid obesity Surgical History S/P laparoscopic sleeve gastrectomy Hx of hand surgery Hx of wisdom tooth extraction Family History Mother Hypertension High cholesterol Father Hypertension Diabetes Sister No problems noted. Brother Diabetes Brother Hydrocephalus Son No problems noted. Daughter No problems noted. Social History Household Members: None Housing: House Are you a primary pet care associate to a significant other at home: No Do you presently have visiting nurse or other home services: No Alcohol intake: current Alcohol intake frequency: a few times a week Patient Tobacco Use Status: Never used Tobacco Telehealth Telehealth Telehealth Platform: Telephone Location of provider rendering services: practice address Location of patient: address on file Patient Identification confirmed using: Name, : Yes Telehealth method: voice only Patient verbally consented to treatment: Yes Patient verbally consented to billing insurance company: Yes Patient informed of any privacy concerns related to visit: Yes Minutes spent on Phone/Video with Pt.: 15 Assessment & Plan Assessment & Plan (1) S/P laparoscopic sleeve gastrectomy: Code(s): Z98.84 - Bariatric surgery status Category: Surgical Plan: check 18 month post op labs continue meal plan encouraged to continue to text weights weekly he has decreased his exercise and realized he has gained a few pounds. Not doin as much outdoor activity but does have a rowing machine in the house and will start rowing 2 days per week rtc 6 months Orders: Orders Insulin Today E66.3 - Overweight, K74.00 - Hepatic fibrosis, unspecified, Z98.84 - Bariatric surgery status Vitamin B12 and Folate Today E66.3 - Overweight, K74.00 - Hepatic fibrosis, unspecified, Z98.84 - Bariatric surgery status Zinc Today E66.3 - Overweight, K74.00 - Hepatic fibrosis, unspecified, Z98.84 - Bariatric surgery status Comprehensive Met. Panel Today E66.3 - Overweight, K74.00 - Hepatic fibrosis, unspecified, Z98.84 - Bariatric surgery status Ferritin Today E66.3 - Overweight, K74.00 - Hepatic fibrosis, unspecified, Z98.84 - Bariatric surgery status PTHI Today E66.3 - Overweight, K74.00 - Hepatic fibrosis, unspecified, Z98.84 - Bariatric surgery status TSH reflex Free T4 Today E66.3 - Overweight, K74.00 - Hepatic fibrosis, unspeci fied, Z98.84 - Bariatric surgery status Lipid Panel Today E66.3 - Overweight, K74.00 - Hepatic fibrosis, unspecified, Z98.84 - Bariatric surgery status IRON PROFILE Today E66.3 - Overweight, K74.00 - Hepatic fibrosis, unspecified, Z98.84 - Bariatric surgery status Complete Blood Count Auto Diff Today E66.3 - Overweight, K74.00 - Hepatic fibrosis, unspecified, Z98.84 - Bariatric surgery status Vitamin B1 Today E66.3 - Overweight, K74.00 - Hepatic fibrosis, unspecified, Z98.84 - Bariatric surgery status Vitamin A Today E66.3 - Overweight, K74.00 - Hepatic fibrosis, unspecified, Z98.84 - Bariatric surgery status C Reactive Protein Today E66.3 - Overweight, K74.00 - Hepatic fibrosis, unspecified, Z98.84 - Bariatric surgery status Vitamin D 25-OH Total Today E66.3 - Overweight, K74.00 - Hepatic fibrosis, unspecified, Z98.84 - Bariatric surgery status Hemoglobin A1c Today E66.3 - Overweight, K74.00 - Hepatic fibrosis, unspecified, Z98.84 - Bariatric surgery status
[2024-10-21 08:47] VITALS: BMI 27.1
== END 2024-10-21 09:04 | disposition home or self-care (01) ==
LOC: HO.HBS 09:01
PROVIDERS: PCP Family Medicine; Visit Provider Physician Assistant Surgical
DX: E66.3 Overweight (principal); Z68.27 Body mass index [BMI] 27.0-27.9, adult; Z90.3 Acquired absence of stomach [part of]; Z98.84 Bariatric surgery status
CPT/HCPCS: 99214

== ENCOUNTER → 2024-10-21 09:00 | Outpatient (BNVA) | payer OTHER, SELFPAY | PROVIDERS: PCP Family Medicine; Visit Provider Physician Assistant Surgical | DX: E66.3 Overweight (principal); K74.00 Hepatic fibrosis, unspecified; Z98.84 Bariatric surgery status ==